=== PATIENT | female | born 1990 | race Caucasian/White ===

== ENCOUNTER 2019-07-31 15:38 | Emergency (ER) | payer OTHER, SELFPAY ==
--- NOTE | ~2019-07-31 | XR_ITS ---
EXAMINATION: XR chest 2V DATE: 07/31/2019 17:20 INDICATION: Syncope. Weakness. TECHNIQUE: Frontal and lateral views of the chest were obtained. COMPARISON: Chest 2 views 01/11/2015 FINDINGS: The chest demonstrates clear lungs without pneumonia, pleural effusion, or pneumothorax. Th e heart size is normal. IMPRESSION: 1. No acute cardiopulmonary disease. Reviewed, dictated and finalized at location A. [employer]
[2019-07-31 16:28] VITALS: BP 114/62; PULSE 65; RESP 16; TEMP 37.2; O2SAT 98
[2019-07-31 16:46] LABS: Basophils Absolute Auto 0.1 K/mm3 (0.0-0.1); Basophils Percent Auto 0.7 % (0.2-1.2); Eosinophils Percent Auto 0.5 % (0-4.4); Hematocrit 42.2 % (37.0-47.0); Hemoglobin 13.4 g/dL (12.0-15.0); Immature Granulocyte Absolute 0.03 K/mm3 (0.00-0.031); Immature Granulocyte Percent A 0.4 % (0-0.5); Lymphocytes Absolute Auto 1.61 K/mm3 (0.9-3.2); Lymphocytes Percent Auto 21.4 % (18.3-44.2); Mean Corpuscular HGB Conc 31.8 g/dl (32-36); Mean Corpuscular Hemoglobin 28.3 pg (26-34); Mean Platelet Volume 10.4 fl (7.4-10.4); Monocytes Absolute Auto 0.6 K/mm3 (0.1-0.6); Monocytes Percent Auto 7.8 % (2.6-8.5); Neutrophils Absolute Auto 5.2 K/mm3 (1.3-6.7); Neutrophils Percent Auto 69.2 % (45.5-73.1); Platelet Count Result 297 k/mm3 (150-375); Red Blood Count 4.74 M/mm3 (4.2-5.4); White Blood Count 7.5 K/mm3 (4.5-10.0)
--- NOTE | 2019-07-31 17:50 | ECG_ITS ---
Measurements Intervals Randall Rate: 69 P: 31 CO: 164 QRS: 25 QRSD: 84 T: 13 QT: 405 QTc: 434 Interpretive Statements SINUS RHYTHM BORDERLINE T WAVE ABNORMALITY- INFERIOR LEADS BASELINE ARTIFACT- I, II, III BORDERLINE ECG Electronically Signed On 08-01-2019 8:14:56 TOUR ESCORT by Shamar Haddad D.O.
--- NOTE | 2019-07-31 17:57 | PC.NURSE ---
PT INFORMED OF NEED FOR URINE SAMPLE, DENIES BEING ABLE TO GO AT THIS TIME.
[2019-07-31 17:58] VITALS: PULSE 69; RESP 16; O2SAT 100
[2019-07-31 18:09] VITALS: BP 105/67; BP 106/84; BP 107/66; PULSE 66; PULSE 79; PULSE 84
[2019-07-31 18:38] LABS: Add Urine Microscopic? YES; Appearance Urine Clear (Clear); Bilirubin Urine Negative (Negative); Color Urine Straw (Yellow); Glucose Urine UA Negative (Negative); Ketones Urine Negative (Negative); Leukocyte Esterase Ur 3+ LEU/UL (Negative); Mucus Urine Rare /lpf; Nitrate Urine Negative (Negative); Protein Urine Negative (Negative); RBC Urine 0-2 /hpf (0-2); Specific Grav Ur 1.014 (1.001-1.035); Squamous Epithelial Cell Urine Occasional /hpf (Few); Urobilinogen Urine Negative mg/dL (<2.0); WBC Urine 16-20 /hpf
[2019-07-31 18:39] LABS: Blood Urine Negative (Negative)
[2019-07-31 18:51] LABS: Amphetamine Screen Urine Negative (Negative); Barbiturate Screen Urine Negative (Negative); Benzodiazepines Screen Urine Negative (Negative); Cannabinoid Screen Urine Negative (Negative); Cocaine Screen Urine Negative (Negative); Methadone Screen Urine Negative (Negative); Opiate Screen Urine Negative (Negative); Phencyclidine Screen Urine Negative (Negative)
--- NOTE | 2019-07-31 18:54 | ED.GENADULT ---
HPI - General Adult General Chief complaint: Dizziness <Kleber Valdes PA-C - Last Filed: 07/31/19 19:56> Stated complaint: dizziness, TAVAREZ <Kleber Valdes PA-C - Last Filed: 07/31/19 19:56> Time Seen by Provider: 07/31/19 17:51 <RADHA Blanc Last Filed: 07/31/19 19:56> Source: patient <Kleber Valdes PA-C - Last Filed: 07/31/19 19:56> Mode of arrival: ambulatory <Kleber Valdes PA-C - Last Filed: 07/31/19 19:56> Limitations: no limitations <Kleber Valdes PA-C - Last Filed: 07/31/19 19:56> History of Present Illness HPI narrative: Patient is a 29-year-old female who presents to emergency department for evaluation of dizziness and syncope that occurred today while sitting at her desk patient began to feel lightheaded and had syncopal episode that was brief patient notes last night she had been up all night with vomiting diarrhea which improved this morning and took some diet medications which she was supposed to take with food but did not take it with food and as a result notes that she believes resulted in her dizziness and syncope. On arrival patient notes mild headache that is frontal in nature notes slight nausea but has no other complaints otherwise and presents with normal gait no distress <Kleber Valdes PA-C - Last Filed: 07/31/19 19:56> Related Data Allergies/adverse reactions: Allergies Allergy/AdvReac Type Severity Reaction Status Date / Time Penicillins Allergy Severe ANAPHYLACTIC Verified 10/03/18 21:27 SHOCK latex Allergy Intermediate Itching,HIV Verified 10/03/18 21:27 ES <Kleber Valdes PA-C - Last Filed: 07/31/19 19:56> Review of Systems Review of Systems: All systems reviewed & are unremarkable except as noted in HPI and below <Kleber Valdes PA-C - Last Filed: 07/31/19 19:56> PMF Surgical History Surgical History: Surgical History H/O section <RADHA Blanc Last Filed: 07/31/19 19:56> Exam Narrative: Exam Narrative: GENERAL: Well-appearing, well-nourished, and in no acute distress. HEAD: Normocephalic, atraumatic. EYES: PERRLA and EOMI. ENT: Nares clear, no rhinorrhea or epistaxis. Mucous membranes moist. Oropharynx without tonsillar hypertrophy exudate or other lesions. NECK: Supple. No adenopathy or masses. CHEST: Clear to auscultation. No respiratory distress. No wheezes rales or rhonchi HEART: Regular rate and rhythm. No murmur heard. Normal peripheral pulses. ABDOMEN: Soft, nontender, nondistended EXTREMITIES: Normal range of motion. No edema. SKIN: Warm, dry, no rash. NEURO: No focal deficits. Alert and oriented x3. Cranial nerves II through XII grossly intact PSYCH: Normal mood and affect. <RADHA Blanc Last Filed: 07/31/19 19:56> Course Course Emergency Course: Patient in the room in no distress aware of case findings treatment plan and diagnosis <RADHA Blanc Last Filed: 07/31/19 19:56> Vital Signs Vital signs: Vital Signs Temperature 98.9 F 07/31/19 16:28 Pulse Rate 65 07/31/19 16:28 Respiratory Rate 16 07/31/19 16:28 Blood Pressure 114/62 07/31/19 16:28 Pulse Oximetry 98 07/31/19 16:28 Temperature 97.3 F L 07/31/19 20:00 Pulse Rate 81 07/31/19 20:00 Respiratory Rate 16 07/31/19 20:00 Blood Pressure 106/75 07/31/19 20:00 Pulse Oximetry 100 07/31/19 20:00 <RADHA Blanc Last Filed: 07/31/19 19:56> Vital Signs Temperature 98.9 F 07/31/19 16:28 Pulse Rate 65 07/31/19 16:28 Respiratory Rate 16 07/31/19 16:28 Blood Pressure 114/62 07/31/19 16:28 Pulse Oximetry 98 07/31/19 16:28 Temperature 97.3 F L 07/31/19 20:00 Pulse Rate 81 07/31/19 20:00 Respiratory Rate 16 07/31/19 20:00 Blood Pressure 106/75 07/31/19 20:00 Pulse Oximetry 100 02/24/20 20:00 <Mandi Del Rio MD -
[2019-07-31] MEDS: ONDANSETRON INJ 4 MG/2 ML VIAL IV PUSH (18:55)
[2019-07-31] MEDS: FAMOTIDINE 20 MG/2 ML VIAL IV PUSH (18:55)
[2019-07-31] MEDS: SODIUM CHLORIDE 0.9% IV 1,000 ML 999 ML IV CONT (18:55)
--- NOTE | 2019-07-31 19:13 | PC.NURSE ---
BEDSIDE REPORT GIVEN TO DAYANNA ROBERTS AT THIS TIME.
[2019-07-31 19:35] VITALS: BP 99/66; PULSE 61; RESP 18; O2SAT 100
[2019-07-31 20:00] VITALS: BP 106/75; PULSE 81; RESP 16; TEMP 36.3; O2SAT 100
[2019-07-31 20:02] LABS: Alanine Aminotransferase 45 U/L (4-35); Albumin Level 4.9 g/dL (3.5-5.1); Alkaline Phosphatase 91 U/L (38-126); Aspartate Amino Transferase 36 U/L (14-36); Bilirubin,Total 0.3 mg/dL (0.2-1.3); Blood Urea Nitrogen 13 mg/dL (7-17); Calcium 9.3 mg/dL (8.4-10.2); Carbon Dioxide 24 mmol/L (22-30); Chloride 101 mmol/L (98-107); Estimated CRCL calculation 85 ml/min; Estimated Glomerular Filt Rate > 60; Glucose 101 mg/dL (65-105); Potassium 4.1 mmol/L (3.4-5.0); Sodium 140 mmol/L (137-145)
--- NOTE | 2019-08-04 11:50 | PC.NURSE ---
LATE ENTRY This note is being entered to document information to the patient's record. The following information was omitted on [07/31/2019], by [LIZZETTE]. NS COMPLETE AT 1955, OFIRMEV COMPLETE AT 1910.
== END 2019-07-31 20:02 | disposition home or self-care (01) ==
PROVIDERS: Emergency Medicine Emergency Medical Services; Emergency Provider General Practice; PCP Internal Medicine
DX: R55 Syncope and collapse (principal); R94.31 Abnormal electrocardiogram [ECG] [EKG]
CPT/HCPCS: 36415; 71046; 80053; 80307; 81001; 81025; 85025; 87077; 87086; 87088; 93005; 96361; 96365; 96375; 99284; J0131; J2405; J7030

== ENCOUNTER 2021-07-08 12:19 | Emergency (ER) | payer OTHER, SELFPAY ==
[2021-07-08 12:39] VITALS: BP 121/62; PULSE 96; RESP 19; TEMP 36.7; O2SAT 96
--- NOTE | 2021-07-08 12:45 | ED.URI ---
HPI - URI/Sore Throat General Chief Complaint: Upper Respiratory Infection Stated Complaint: congestion,headache Time Seen by Provider: 07/08/21 12:47 Source: patient Mode of arrival: ambulatory Limitations: no limitations History of Present Illness HPI Narrative: 31 year old female presents to doctors hospital care with complaints of having COVID 2 weeks ago with continued cough with expectoration of yellowish mucous, sinus drainage with some bleeding noted from nares with blowing nose, right sided headache and right ear pain. Patient states that she had a coughing fit on her way to work today and she was choking which made her chest feel cold and achy, her boss stated she needed to come get checked out. Patient reports that she has been taking Mucinex DM, and Ibuprofen with no resolution of her symptoms. MD elicited complaint: cough, sore throat, rhinorrhea, nasal congestion and other (headache) Related Data Allergies Allergy/AdvReac Type Severity Reaction Status Date / Time Penicillins Allergy Severe ANAPHYLACTIC Verified 07/08/21 12:50 SHOCK latex Allergy Intermediate Itching,HIV Verified 07/08/21 12:50 ES Review of Systems Review of Systems: CONSTITUTIONAL: Denies recent fever, chills, or sweats. EYES: Denies visual changes, redness, or discharge. ENT: Positive for rhinorrhea, congestion, sore throat, right otalgia. CARDIOVASCULAR: Denies chest pain, palpitations, or edema. RESPIRATORY: Positive productive cough denies acute dyspnea or any wheezing. GASTROINTESTINAL: Denies abdominal pain, nausea, vomiting, or diarrhea. GENITOURINARY: Denies dysuria or hematuria. SKIN: Denies rash or itching. MUSCULOSKELETAL: Denies back pain, joint pain, body aches resolved but fatigued NEUROLOGIC: Positive for headache, no numbness, or weakness. PSYCHIATRIC: Positive for history of anxiety or depression. All systems reviewed & are unremarkable except as noted in HPI and below [facility] Past Medical History Medical History (Updated 07/08/21 @ 13:56 by Tegan Lynch NP) Depression Exercise-induced asthma Ovarian cyst Surgical History Surgical History (Updated 07/08/21 @ 13:56 by Tegan Lynch NP) H/O section H/O tubal ligation Hx of tonsillectomy [place] teeth extracted Family History Family History (Updated 07/08/21 @ 13:55 by Tegan Lynch NP) Mother Carcinoma of colon Grandparent Arthritis Social History Social History (Updated 07/08/21 @ 13:35 by Tegan Lynch NP) Smoking status: Never smoker Alcohol intake: current Alcohol use details: social Substance use: never Living arrangements: with family Gender identity (if verbalized by the patient): Female Comments At time of signature, agree with nursing past medical, surgical, social and family history. There is no relevant family history pertinent to the presenting complaint Exam Narrative: GENERAL: Well-appearing, well-nourished, and in no acute distress. HEAD: Normocephalic, atraumatic. EYES: PERRLA and EOMI. ENT: Nares red with clear rhinorrhea some blood from nares when blowing nose. Mucous membranes moist.TM's normal with good light reflex, throat red with no lesions or exudates NECK: Supple. no lymphadenopathy CHEST: Clear to auscultation. No respiratory distress.SAO2 on room air 96%, cough which is productive at times of yellowish mucous no tachypnea noted HEART: Regular rate and rhythm. No murmur heard. Normal peripheral pulses. ABDOMEN: Soft, nontender, nondistended, normal active bowel sounds. EXTREMITIES: Normal range of motion. No edema. SKIN: Warm, dry, no rash. NEURO: No focal deficits. Alert and oriented x3. Course Course Level of Care: Express Care Visit Vital Signs Vital signs: Vital Signs Temperature 36.7 C 07/08/21 12:39 Pulse Rate 96 07/08/21 12:39 Respiratory Rate 19 07/08/21 12:39 Blood Pressure 121/62 07/08/21 12:39 Pulse Oximetry 96 07/08/21 12:39 Temperature 36.7 C 0
== END 2021-07-08 13:11 | disposition home or self-care (01) ==
PROVIDERS: Emergency Provider Registered Nurse
DX: J32.9 Chronic sinusitis, unspecified (principal); R05.9 Cough, unspecified; J45.990 Exercise induced bronchospasm; Z86.16 Personal history of COVID-19
CPT/HCPCS: 99213; G0463

== ENCOUNTER 2021-12-03 12:29 | Emergency (ER) | payer OTHER, SELFPAY ==
[2021-12-03 12:42] VITALS: BP 112/60; PULSE 84; RESP 16; TEMP 36.8; O2SAT 100
--- NOTE | 2021-12-03 12:54 | ED.URI ---
HPI - URI/Sore Throat General Chief Complaint: Upper Respiratory Infection Stated Complaint: sorethroat,headache,nausea Source: patient Mode of arrival: ambulatory Limitations: no limitations History of Present Illness HPI Narrative: Ms. Ch is a 31-year-old female patient presenting to the clinic today with complaints of sore throat, headache, nausea x3 days. She reports she took a COVID test at work yesterday and was negative. States that she had a lot of phlegm in her throat and ended up vomiting at work yesterday so she was sent home. States she slept all day yesterday after being sent home. She feels as though she has strep throat. She denies any known exposure to any COVID or influenza but/strep throat is running rapid through her workplace. MD elicited complaint: sore throat and nasal congestion Related Data Home Medications Medication Instructions Recorded Confirmed [id number]-qzvc-minerals 27 1 tablet PO DAILY 12/03/21 12/03/21 mg-0.4 mg tablet Allergies Allergy/AdvReac Type Severity Reaction Status Date / Time Penicillins Allergy Severe ANAPHYLACTIC Verified 12/03/21 12:55 SHOCK latex Allergy Intermediate Itching,HIV Verified 12/03/21 12:55 ES Review of Systems Review of Systems: Pertinent positives per HPI. Patient denies any fever, chills, rash, visual changes, dizziness, shortness of breath, chest pain, palpitations, diarrhea, constipation, abdominal pain, or any urinary issues. [facility] Past Medical History Medical History (Updated 12/03/21 @ 13:27 by Vasquez Alamo APRN) Depression Exercise-induced asthma Ovarian cyst Surgical History Surgical History (Updated 07/08/21 @ 13:56 by Tegan Lynch NP) H/O section H/O tubal ligation Hx of tonsillectomy [place] teeth extracted Family History Family History (Updated 07/08/21 @ 13:56 by Tegan Lynch NP) Mother Carcinoma of colon Grandparent Arthritis Social History Social History (Updated 07/08/21 @ 13:35 by Tegan Lynch NP) Smoking status: Never smoker Alcohol intake: current Alcohol use details: social Substance use: never Gender identity (if verbalized by the patient): Female Comments At the time of my signature, I reviewed and agree with the nursing past medical, surgical, social, and family history. There is no relevant family history pertinent to the patient complaint. Exam Narrative: General: Well-developed, well nourished, in no apparent distress Head: Normocephalic, atraumatic Eyes: Pupils equally round and reactive to light bilaterally, EOM intact, sclera and conjunctive clear, no discharge, lids normal Ears: TMs intact and clear, ear canals clear, no drainage, grossly hearing normal. Nose: Nares patent, clear nasal discharge, no inflammation, no sinus tenderness. Mouth: Oral pharynx without lesions or masses, good dentition, MMM. Oropharynx red, postnasal drip Neck: Supple, trachea midline, no enlargement of anterior or posterior cervical nodes, no thyroid masses or goiter palpable. Cardio: Regular rate and rhythm, s1 and s2 normal, no murmur appreciated. Resp: Clear to auscultation bilaterally, no rhonchi, rales, wheezing or rubs Course Course Emergency Course: Portions of this record may have been created with voice recognition software. Level of Care: Express Care Visit Vital Signs Vital signs: Vital Signs Temperature 36.8 C 12/03/21 12:42 Pulse Rate 84 12/03/21 12:42 Respiratory Rate 16 12/03/21 12:42 Blood Pressure 112/60 12/03/21 12:42 Pulse Oximetry 100 12/03/21 12:42 Oxygen Delivery Room Air 12/03/21 12:42 Temperature 36.8 C 12/03/21 12:42 Pulse Rate 84 12/03/21 12:42 Respiratory Rate 16 12/03/21 12:42 Blood Pressure 112/60 12/03/21 12:42 Pulse Oximetry 100 12/03/21 12:42 Oxygen Delivery Room Air 12/03/21 12:42 Vital signs reviewed MDM - URI/Sore Throat MDM Narrative Medical
== END 2021-12-03 13:32 | disposition home or self-care (01) ==
PROVIDERS: Emergency Provider Nurse Practitioner Family; PCP Hospitalist
DX: R09.82 Postnasal drip (principal); J06.9 Acute upper respiratory infection, unspecified; J02.9 Acute pharyngitis, unspecified; Z20.822 Contact with and (suspected) exposure to COVID-19; J45.990 Exercise induced bronchospasm
CPT/HCPCS: 87081; 87426; 87880; 99213; C9803; G0463

== ENCOUNTER 2021-12-05 11:20 | Emergency (ER) | payer OTHER, SELFPAY ==
--- NOTE | 2021-12-05 11:34 | ED.URI ---
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 2 days ago she stated strep is running like wildfire through her office and she came in but the sore throat she is just having symptoms for about 24 hours and she tested negative for COVID and negative for rapid strep however her culture also came back negative. She is demanding an antibiotic she states that she has a ball of blood and exudate on her left tonsil partially down her pharynx-she states she has 102.8 fever this morning, is afebrile here Plan is to do another rapid strep She is not drooling, she is afebrile, she has no muffling of her voice, and she is angry Related Data Home Medications Medication Instructions Recorded Confirmed hxnlqmpzfoip-Nz-bqfz-minerals 27 1 tablet PO DAILY 12/03/21 12/05/21 mg-0.4 mg tablet prednisone 20 mg tablet 2 tablet PO DAILY 12/05/21 12/05/21 Allergies Allergy/AdvReac Type Severity Reaction Status Date / Time Penicillins Allergy Severe ANAPHYLACTIC Verified 12/05/21 11:28 SHOCK latex Allergy Intermediate Itching,HIV Verified 12/05/21 11:28 ES Review of Systems Review of Systems: CONSTITUTIONAL: No chills, sweats. States had a fever 102.8 this morning; EYES: Denies visual changes, redness, discharge. ENT: Denies rhinorrhea, congestion, has sore throat, otalgia. CARDIOVASCULAR: Denies chest pain, palpitations, edema. RESPIRATORY: Denies dyspnea, wheezing, cough GASTROINTESTINAL: Denies abdominal pain, nausea, vomiting, diarrhea. GENITOURINARY: Denies dysuria, hematuria, abnormal discharge SKIN: Denies rash or itching. NEUROLOGIC: Denies numbness, or focal weakness. PSYCHIATRIC: Denies anxiety or depression. [facility] Past Medical History Medical History Depression Exercise-induced asthma Ovarian cyst Surgical History Surgical History H/O section H/O tubal ligation Hx of tonsillectomy [place] teeth extracted Family History Family History Mother Carcinoma of colon Grandparent Arthritis Social History Social History Smoking status: Never smoker Alcohol intake: current Alcohol use details: social Substance use: never Gender identity (if verbalized by the patient): Female Comments At time of signature, I agree with nursing past medical, surgical, social and family history. There is no relevant family history pertinent to the presenting complaint. Exam Narrative: GENERAL: This is a well-nourished, well-developed patient, in mild distress. HEAD: normocephalic, atraumatic. EYES: Sclera clear/white. Vision is grossly intact. EARS: External ears normal, auditory canals erythema and without drainage, TMs normal without perforation. Hearing grossly intact. NOSE: External nose normal without nasal discharge, nares without redness, no rhinorrhea. THROAT: Mucous membranes moist, posterior pharynx NECK: Neck supple, non-tender CARDIOVASCULAR: Regular rate and rhythm without murmurs, gallops, or rubs. RESPIRATORY: Clear to auscultation. Breath sounds equal bilaterally. No wheezes, rales, or rhonchi. GASTROINTESTINAL: Not done SKIN: warm, intact with no suspicious lesions or rash, good texture and turgor. NEURO: awake, alert, and oriented to person, place and time. There were no obvious focal neurologic abnormalities. Steady gait EXTREMITIES: Normal range of motion. BACK: Nontender without deformity Course Course Emergency Course: Patient retested for both strep and this time COVID Strep test is negative but COV
[2021-12-05 11:35] VITALS: BP 121/75; PULSE 76; RESP 18; TEMP 36.4; O2SAT 100
== END 2021-12-05 12:25 | disposition home or self-care (01) ==
PROVIDERS: Emergency Provider Nurse Practitioner; PCP Hospitalist
DX: U07.1 COVID-19 (principal); J45.990 Exercise induced bronchospasm
CPT/HCPCS: 87426; 87880; 99213; C9803; G0463

== ENCOUNTER 2022-03-31 19:11 | Emergency (ER) | payer OTHER, SELFPAY ==
[2022-03-31 19:20] VITALS: BP 110/64; PULSE 73; RESP 16; TEMP 36.2; O2SAT 100
--- NOTE | 2022-03-31 19:38 | ED.URI ---
HPI - URI/Sore Throat General Chief Complaint: Nausea/Vomiting/Diarrhea Stated Complaint: nausea,diarrhea Time Seen by Provider: 03/31/22 19:30 Source: patient Mode of arrival: ambulatory Limitations: no limitations History of Present Illness HPI Narrative: Patient presents today with a 2 day history of headache, left ear pain, body aches and chills, nausea, vomiting, diarrhea. States her children were sick with the, ?stomach flu? last weekend, but their symptoms have since resolved. She has taken some [id number] medications without much relief. States she is unable to keep down much water, but is urinating. Related Data Allergies Allergy/AdvReac Type Severity Reaction Status Date / Time Penicillins Allergy Severe ANAPHYLACTIC Verified 03/31/22 19:31 SHOCK latex Allergy Intermediate Itching,HIV Verified 03/31/22 19:31 ES Review of Systems Review of Systems: CONSTITUTIONAL: Denies chills, or sweats.+ body aches, chills, fever EYES: Denies visual changes, redness, or discharge. ENT: Denies rhinorrhea, congestion, sore throat. + left ear pain CARDIOVASCULAR: Denies chest pain, palpitations, or edema. RESPIRATORY: Denies cough or dyspnea. GASTROINTESTINAL: Denies abdominal pain. + nausea, vomiting, diarrhea GENITOURINARY: Denies dysuria or hematuria. SKIN: Denies rash, itching, or wounds. MUSCULOSKELETAL: Denies back pain, joint pain, or myalgia. NEUROLOGIC: Denies headache, numbness, tingling, or weakness. PSYCH: Denies depression or anxiety. [facility] Past Medical History Medical History Depression Exercise-induced asthma Ovarian cyst Surgical History Surgical History H/O section H/O tubal ligation Hx of tonsillectomy [place] teeth extracted Family History Family History Mother Carcinoma of colon Grandparent Arthritis Social History Social History Smoking status: Never smoker Alcohol intake: current Alcohol use details: social Substance use: never Gender identity (if verbalized by the patient): Female Comments At time of signature, I have reviewed and agree with nursing past medical, surgical, social and family history unless otherwise noted. Please see nursing chart for further information. There is no relevant family history pertinent to the presenting complaint Exam Narrative: GENERAL: Well-appearing, well-nourished, and in no acute distress. HEAD: Normocephalic, atraumatic. EYES: EOMI. No redness or drainage. Conjunctivae normal. ENT: Mucous membranes pink and moist. Nares clear. No rhinorrhea. TMs normal bilaterally. Throat normal. Uvula midline. NECK: Normal AROM. Supple. No lymphadenopathy. CHEST: No respiratory distress. Clear to auscultation. HEART: Regular rate and rhythm. No murmur appreciated. Normal peripheral pulses. ABDOMEN: Soft, nontender, nondistended, normal active bowel sounds. MUSCULOSKELETAL: No bony tenderness. EXTREMITIES: Normal range of motion. No edema. SKIN: Warm, dry, no rash. Capillary refill normal. Normal skin turgor. NEURO: No focal deficits. Alert and oriented x3. Gait steady. PSYCH: Normal affect. No signs of depression or anxiety. Course Course Emergency Course: 2001- Patient not feeling better after Zofran. Discussed other options, also not taking motrin on empty stomach, adding pepcid, when to go to the ER. Level of Care: Express Care Visit Vital Signs Vital signs: Vital Signs Temperature 97.1 F L 03/31/22 19:20 Pulse Rate 73 03/31/22 19:20 Respiratory Rate 16 03/31/22 19:20 Blood Pressure 110/64 03/31/22 19:20 Pulse Oximetry 100 03/31/22 19:20 Oxygen Delivery Room Air 03/31/22 19:20 Temperature 97.1 F L 03/31/22 19:20 Pulse Rate 73 03/31/22 19:20
[2022-03-31] MEDS: ONDANSETRON HCL ODT 4 MG TABLET 8 MG SUBLINGUAL (19:42)
== END 2022-03-31 20:18 | disposition home or self-care (01) ==
PROVIDERS: Emergency Provider Nurse Practitioner
DX: B34.9 Viral infection, unspecified (principal); Z20.822 Contact with and (suspected) exposure to COVID-19; J45.990 Exercise induced bronchospasm
CPT/HCPCS: 87426; 87804; 99213; A9270; C9803; G0463

== ENCOUNTER 2022-06-01 13:07 | Emergency (ER) | payer OTHER, SELFPAY ==
[2022-06-01 13:23] VITALS: BP 111/68; PULSE 66; RESP 18; TEMP 36.3; O2SAT 100
--- NOTE | 2022-06-01 14:48 | ED.URI ---
HPI - URI/Sore Throat General Chief Complaint: Upper Respiratory Infection Stated Complaint: sorethroat,headache Time Seen by Provider: 06/01/22 14:48 Source: patient Mode of arrival: ambulatory Limitations: no limitations History of Present Illness HPI Narrative: 32-year-old female presents with complaint of sore throat, headache, fatigue, fever starting yesterday. States that her temp was 104? F this morning. Took Tylenol prior to arrival. States that she had exposure to strep from both her children. Denies nausea vomiting diarrhea. All systems reviewed and negative except as noted above. Related Data Allergies Allergy/AdvReac Type Severity Reaction Status Date / Time Penicillins Allergy Severe ANAPHYLACTIC Verified 06/01/22 14:32 SHOCK latex AdvReac Intermediate Itching,HIV Verified 06/01/22 14:32 ES Review of Systems Review of Systems: CONSTITUTIONAL: reports fever, chills, or sweats. EYES: Denies visual changes, redness, or discharge. ENT: Denies rhinorrhea, congestion . Reports sore throat CARDIOVASCULAR: Denies chest pain, palpitations, or edema. RESPIRATORY: Denies cough or dyspnea. GASTROINTESTINAL: Denies abdominal pain, nausea, vomiting, or diarrhea. GENITOURINARY: Denies dysuria or hematuria. SKIN: Denies rash or itching. MUSCULOSKELETAL: Denies back pain, joint pain, or myalgia. NEUROLOGIC: reports headache. Denies numbness, or weakness. PSYCHIATRIC: Denies anxiety or depression. All other systems reviewed are negative, except as documented in HPI. [facility] Past Medical History Medical History Depression Exercise-induced asthma Ovarian cyst Surgical History Surgical History H/O section H/O tubal ligation Hx of tonsillectomy [place] teeth extracted Family History Family History Mother Carcinoma of colon Grandparent Arthritis Social History Social History Smoking status: Never smoker Alcohol intake: current Alcohol use details: social Substance use: never Gender identity (if verbalized by the patient): Female Comments At time of signature, agree with nursing past medical, surgical, social and family history. There is no relevant family history pertinent to the presenting complaint. Exam Narrative: GENERAL: This is a well-nourished, well-developed patient, in no apparent distress. HEAD: normocephalic, atraumatic. EYES: PERRL. Sclera clear/white. Vision is grossly intact. EARS: External ears normal, auditory canals clear and without drainage, TMs normal without perforation. Hearing grossly intact. NOSE: External nose normal with no obvious nasal discharge, nares without redness, no rhinorrhea. THROAT: Mucous membranes moist, swelling and erythema to the pharynx. No exudates. NECK: Neck supple, non-tender without lymphadenopathy, masses or thyromegaly. CARDIOVASCULAR: Regular rate and rhythm without murmurs, gallops, or rubs. RESPIRATORY: Clear to auscultation. Breath sounds equal bilaterally. No wheezes, rales, or rhonchi. SKIN: warm, Dry, intact with no suspicious lesions or rash, good texture and turgor. NEURO: awake, alert, and oriented to person, place and time. There were no obvious focal neurologic abnormalities. EXTREMITIES: No joint tenderness, effusion, or edema noted. Course Course Level of Care: Express Care Visit Vital Signs Vital signs: Vital Signs Temperature 36.3 C L 06/01/22 13:23 Pulse Rate 66 06/01/22 13:23 Respiratory Rate 18 06/01/22 13:23 Blood Pressure 111/68 06/01/22 13:23 Pulse Oximetry 100 06/01/22 13:23 Oxygen Delivery Room Air 06/01/22 13:23 Temperature 36.3 C L 06/01/22 13:23 Pulse Rate 66 06/01/22 13:23 Respiratory Rate 18 06/01/22 13:23 Blood P
== END 2022-06-01 15:00 | disposition home or self-care (01) ==
PROVIDERS: Emergency Provider Nurse Practitioner Family; PCP Hospitalist
DX: J02.9 Acute pharyngitis, unspecified (principal); J45.990 Exercise induced bronchospasm
CPT/HCPCS: 99213; G0463

== ENCOUNTER 2022-07-20 08:05 | Emergency (ER) | payer OTHER, SELFPAY ==
[2022-07-20 08:15] VITALS: BP 105/68; PULSE 64; RESP 18; TEMP 36.7; O2SAT 100
[2022-07-20 08:16] VITALS: BP 105/68; PULSE 64; RESP 18; TEMP 36.7; O2SAT 100
--- NOTE | 2022-07-20 08:30 | ED.URI ---
HPI - URI/Sore Throat General Chief Complaint: Upper Respiratory Infection Stated Complaint: sorethroat,lt earache Source: patient Mode of arrival: ambulatory Limitations: no limitations History of Present Illness HPI Narrative: 32-year-old female presents to [facility] with complaints of sore throat, headache and left ear pain for the past 2 days. Patient has been taking [id number] ibuprofen with minimal relief. Patient reports that her 2 children were diagnosed with strep throat 3 days ago. Patient denies cough, congestion, runny nose, shortness of breath, wheezing, nausea, vomiting or diarrhea. Patient reports that she did have a tonsillectomy at age 11. MD elicited complaint: sore throat Onset (ago): day(s) (2) Exacerbating factors: swallowing Context: sick contacts Treatments prior to arrival: ibuprofen Related Data Allergies Allergy/AdvReac Type Severity Reaction Status Date / Time Penicillins Allergy Severe ANAPHYLACTIC Verified 06/01/22 14:32 SHOCK latex AdvReac Intermediate Itching,HIV Verified 06/01/22 14:32 ES Review of Systems Constitutional: Constitutional: Denies chills, Denies fatigue, Denies fever(s) and Denies weakness ENT: Denies vertigo, Denies dizziness, Denies epistaxis, Denies nasal congestion and Reports sore throat Comments: Left ear pain Cardiovascular: Cardiovascular: Denies chest pain Respiratory: Respiratory: Denies cough, Denies dyspnea and Denies wheezing Gastrointestinal: Gastrointestinal: Denies diarrhea, Denies nausea and Denies vomiting Integumentary/Breasts: Skin/Breast: Denies rash PMFSH Past Medical History Medical History Depression Exercise-induced asthma Ovarian cyst Surgical History Surgical History H/O section H/O tubal ligation Hx of tonsillectomy [place] teeth extracted Family History Family History Mother Carcinoma of colon Grandparent Arthritis Social History Social History Smoking status: Never smoker Alcohol intake: current Alcohol use details: social Substance use: never Living arrangements: with family Gender identity (if verbalized by the patient): Female Comments At time of signature, I agree with nursing past medical, surgical, social and family history. There is no relevant family history pertinent to the presenting complaint. Exam Const: General: healthy appearing and no acute distress Nutritional Appearance: well nourished Orientation/consciousness: patient oriented x3 Limitations: no limitations HENMT: Head: normal to inspection Ears: external ears normal, TM's normal bilaterally and EAC's normal Face/Nose/Sinus: Normal external nose present Face and sinus: normal facial exam and sinuses nontender Mouth: Yes Normal oral and palatal mucosa present and Yes lip normal Throat: uvula midline Other: Mild erythema noted to posterior pharynx. Tonsils are absent Eyes: Conjunctivae: conjunctivae normal Neck: Neck: normal visual inspection Resp: Effort & Inspection: normal respiratory effort and not labored Auscultation: clear to auscultation bilaterally, no crackles, no rales, no rhonchi and no wheezes Cardio: Rate: regular rate Rhythm: regular rhythm Heart sounds: no murmurs Skin: General skin exam: normal color Rashes: no rashes Neuro: General: patient oriented x3 Speech: normal speech Psych: Affect: normal affect Attitude: cooperative Course Course Level of Care: Express Care Visit Vital Signs Vital signs: Vital Signs Temperature 36.7 C 07/20/22 08:15 Pulse Rate 64 07/20/22 08:15 Respiratory Rate 18 07/20/22 08:15 Blood Pressure 105/68 07/20/22 08:15 Pulse Oximetry 100 07/20/22 08:15 Oxygen Delivery Room Air 07/20/22 08:15 Temperature
== END 2022-07-20 08:45 | disposition home or self-care (01) ==
PROVIDERS: Emergency Provider Nurse Practitioner Family; PCP Hospitalist
DX: J02.9 Acute pharyngitis, unspecified (principal); J45.990 Exercise induced bronchospasm
CPT/HCPCS: 87081; 87880; 99213; G0463

== ENCOUNTER 2022-09-19 10:48 | Emergency (ER) | payer OTHER, SELFPAY ==
[2022-09-19 11:12] VITALS: BP 107/71; PULSE 82; RESP 16; TEMP 36.7; O2SAT 99
--- NOTE | 2022-09-19 11:30 | ED.URI ---
HPI - URI/Sore Throat General Chief Complaint: Upper Respiratory Infection Stated Complaint: sorethroat,cough Time Seen by Provider: 09/19/22 11:15 Source: patient Mode of arrival: ambulatory Limitations: no limitations History of Present Illness HPI Narrative: Brenda is a 32-year-old female patient presenting to the clinic today with complaints of sore throat, cough, congestion, and bilateral ear pain x2 days. She denies any fever or chills. She denies any known exposure to anybody with COVID, flu, or strep. Her son has similar symptoms and is being seen in the clinic today. MD elicited complaint: cough, sore throat, nasal congestion and other (Bilateral ear pain) Related Data Home Medications Medication Instructions Recorded Confirmed No Home Medications 09/19/22 09/19/22 Allergies Allergy/AdvReac Type Severity Reaction Status Date / Time Penicillins Allergy Severe ANAPHYLACTIC Verified 09/19/22 11:15 SHOCK latex AdvReac Intermediate Itching,HIV Verified 09/19/22 11:15 ES Review of Systems Review of Systems: Pertinent positives per HPI. Patient denies any fever, chills, rash, headache, visual changes, dizziness, cough, shortness of breath, chest pain, palpitations, nausea, vomiting, diarrhea, constipation, abdominal pain, or any urinary issues. [facility] Past Medical History Medical History Depression Exercise-induced asthma Ovarian cyst Surgical History Surgical History H/O section H/O tubal ligation Hx of tonsillectomy [place] teeth extracted Family History Family History Mother Carcinoma of colon Grandparent Arthritis Social History Social History Smoking status: Never smoker Alcohol intake: current Alcohol use details: social Substance use: never Living arrangements: with family Gender identity (if verbalized by the patient): Female Comments At the time of my signature, I reviewed and agree with the nursing past medical, surgical, social, and family history. There is no relevant family history pertinent to the patient complaint. Exam Narrative: General: Well-developed, well nourished, in no apparent distress Head: Normocephalic, atraumatic Eyes: Pupils equally round and reactive to light bilaterally, EOM intact, sclera and conjunctive clear, no discharge, lids normal Ears: TMs intact and congested, ear canals clear, no drainage, grossly hearing normal. Nose: Nares patent, clear discharge, mild inflammation, no sinus tenderness. Mouth: Oral pharynx mildly red without lesions or masses, good dentition, MMM. Neck: Supple, trachea midline, no enlargement of anterior or posterior cervical nodes, no thyroid masses or goiter palpable. Cardio: Regular rate and rhythm, s1 and s2 normal, no murmur appreciated. Resp: Clear to auscultation bilaterally, no rhonchi, rales, wheezing or rubs Course Course Emergency Course: Portions of this record may have been created with voice recognition software. Level of Care: Express Care Visit Vital Signs Vital signs: Vital Signs Temperature 36.7 C 09/19/22 11:12 Pulse Rate 82 09/19/22 11:12 Respiratory Rate 16 09/19/22 11:12 Blood Pressure 107/71 09/19/22 11:12 Pulse Oximetry 99 09/19/22 11:12 Oxygen Delivery Room Air 09/19/22 11:12 Temperature 36.7 C 09/19/22 11:12 Pulse Rate 82 09/19/22 11:12 Respiratory Rate 16 09/19/22 11:12 Blood Pressure 107/71 09/19/22 11:12 Pulse Oximetry 99 09/19/22 11:12 Oxygen Delivery Room Air 09/19/22 11:12 Vital signs reviewed MDM - URI/Sore Throat MDM Narrative Medical decision making narrative: At the time of visit patient is resting comfortably on the exam table. I suspect patient has URI/pharyngitis/
== END 2022-09-19 11:31 | disposition home or self-care (01) ==
PROVIDERS: Emergency Provider Nurse Practitioner Family; PCP Hospitalist
DX: J06.9 Acute upper respiratory infection, unspecified (principal); J02.9 Acute pharyngitis, unspecified; B34.9 Viral infection, unspecified; J45.990 Exercise induced bronchospasm
CPT/HCPCS: 87081; 87880; 99213; G0463

== ENCOUNTER 2022-09-21 08:52 | Emergency (ER) | payer OTHER, SELFPAY ==
--- NOTE | ~2022-09-21 | XR_ITS ---
Clinical Indication: Cough PA and lateral views of the chest: Comparison: 07/31/2019 Findings: The lungs are clear, without evidence of focal consolidation or pleural effusion. Cardiome diastinal silhouette is within normal limits. Bones and soft tissues are unremarkable. Impression: Normal chest. Reviewed, dictated and finalized at [facility]. Impression: Normal chest.
[2022-09-21 08:59] VITALS: BP 102/60; PULSE 66; RESP 16; TEMP 36.6; O2SAT 100
--- NOTE | 2022-09-21 09:17 | ED.URI ---
HPI - URI/Sore Throat General Chief Complaint: Upper Respiratory Infection Stated Complaint: sorethroat,cough Time Seen by Provider: 09/21/22 08:55 Source: patient Mode of arrival: ambulatory Limitations: no limitations History of Present Illness HPI Narrative: [age] year female presents to [facility] with complaints of sore throat, nonproductive cough, chest congestion, upper chest pains with coughing for the past 3-4 days. Patient was evaluated here 2 days ago, diagnosed with pharyngitis and was prescribed prednisone at that time. Patient reports that she took a COVID test at her employer today which was positive. Patient is nonsmoker. Patient reports that she has a history of bronchitis and pneumonia. Patient has been taking prescribed prednisone, [id number] Motrin, Tylenol, NyQuil and DayQuil with minimal relief. Patient reports that she has a history of chronic shortness of breath and is scheduled to see her primary care provider this week to discuss MD elicited complaint: cough and sore throat Pertinent past history: pneumonia and other (bronchitis) Onset (ago): day(s) (3) Able to tolerate fluids by mouth: Yes Context: sick contacts Treatments prior to arrival: acetaminophen, ibuprofen and cold medicine Related Data Allergies Allergy/AdvReac Type Severity Reaction Status Date / Time Penicillins Allergy Severe ANAPHYLACTIC Verified 09/19/22 11:15 SHOCK latex AdvReac Intermediate Itching,HIV Verified 09/19/22 11:15 ES Review of Systems Constitutional: Constitutional: Denies chills, Reports fatigue, Denies fever(s) and Denies weakness ENT: Denies dizziness, Denies epistaxis, Reports nasal congestion and Reports sore throat Cardiovascular: Cardiovascular: Reports chest pain, Denies rapid heart rate, Denies radiating jaw, neck or arm pain and Denies slow heart rate Respiratory: Respiratory: Reports chest congestion, Reports cough, Reports dyspnea and Denies wheezing Gastrointestinal: Gastrointestinal: Denies abdominal pain, Denies diarrhea, Denies nausea and Denies vomiting Integumentary/Breasts: Skin/Breast: Denies rash Neurologic: Denies dizziness, Denies syncope and Denies headache(s) [facility] Past Medical History Medical History Depression Exercise-induced asthma Ovarian cyst Surgical History Surgical History H/O section H/O tubal ligation Hx of tonsillectomy [place] teeth extracted Family History Family History Mother Carcinoma of colon Grandparent Arthritis Social History Social History Smoking status: Never smoker Alcohol intake: current Alcohol use details: social Substance use: never Living arrangements: with family Gender identity (if verbalized by the patient): Female Comments At time of signature, I agree with nursing past medical, surgical, social and family history. There is no relevant family history pertinent to the presenting complaint. Exam Const: General: healthy appearing and no acute distress Nutritional Appearance: well nourished Orientation/consciousness: patient oriented x3 Limitations: no limitations HENMT: Head: normal to inspection Ears: external ears normal, TM's normal bilaterally and EAC's normal Face/Nose/Sinus: Normal external nose present and Normal nares present Face and sinus: normal facial exam Mouth: Yes Normal oral and palatal mucosa present Teeth and gingiva: dentition normal Throat: posterior oropharynx normal and uvula midline Eyes: Conjunctivae: conjunctivae normal Neck: Neck: normal visual inspection Resp: Effort & Inspection: normal respiratory effort Auscultation: no crackles, no rales, no rhonchi, no wheezes and breath sounds present Other: Frequent harsh nonproductive cough noted; mild dimin
== END 2022-09-21 09:41 | disposition home or self-care (01) ==
PROVIDERS: Emergency Provider Nurse Practitioner Family; PCP Hospitalist
DX: U07.1 COVID-19 (principal)
CPT/HCPCS: 71046; 99213; G0463

== ENCOUNTER 2022-09-30 09:44 | Emergency (ER) | payer OTHER, SELFPAY ==
--- NOTE | 2022-09-30 09:45 | ED.URI ---
HPI - URI/Sore Throat General Chief Complaint: Upper Respiratory Infection Stated Complaint: Lt Ear Irritation,Headache,Lt Facial Swelling Time Seen by Provider: 09/30/22 09:45 Source: patient Mode of arrival: ambulatory Limitations: no limitations History of Present Illness HPI Narrative: Is a 32-year-old female who presents with left ear pain, left-sided throat pain and headache. Patient was seen here 09-19 and 09-21 for similar symptoms. Patient diagnosed with COVID. Patient reports son does positive for strep a few days after being diagnosed with COVID. 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 States her throat feels like she is swallowing glass. Denies any discharge from left ear or hearing loss. Denies any congestion at this time, reports fever of 100.3 this morning. Has been using Tylenol and ibuprofen for pain with no relief. Denies any nausea, vomiting, diarrhea. MD elicited complaint: sore throat Related Data Allergies Allergy/AdvReac Type Severity Reaction Status Date / Time Penicillins Allergy Severe ANAPHYLACTIC Verified 09/30/22 09:46 SHOCK latex AdvReac Intermediate Itching,HIV Verified 09/30/22 09:46 ES Review of Systems Review of Systems: All systems reviewed & are unremarkable except as noted in HPI and below Constitutional: Constitutional: Denies body ache(s), Denies chills, Denies fatigue, Reports fever(s), Reports headache(s), Denies malaise and Denies weakness Eyes: Eyes: Denies blurry vision, Denies itchy eyes and Denies loss of vision ENT: Reports otalgia, Reports headache(s), Denies nasal congestion, Denies sinus pain and Reports sore throat Cardiovascular: Cardiovascular: Denies chest pain, Denies irregular heart rhythm and Denies dyspnea Respiratory: Respiratory: Reports cough and Denies dyspnea Gastrointestinal: Gastrointestinal: Denies abdominal pain, Denies diarrhea, Denies nausea and Denies vomiting Musculoskeletal: Musculoskeletal: Denies back pain, Denies myalgias and Denies arthralgias Integumentary/Breasts: Skin/Breast: Denies pruritus and Denies rash Neurologic: Denies headache(s), Denies loss of vision and Denies weakness Psychiatric: Psychiatric: Reports no additional psychiatric complaints Endocrine: Endocrine: Denies fatigue Allergic/Immunologic: Allergic/Immunologic: Denies itchy eyes PMFSH Past Medical History Medical History Depression Exercise-induced asthma Ovarian cyst Surgical History Surgical History H/O section H/O tubal ligation Hx of tonsillectomy [place] teeth extracted Family History Family History Mother Carcinoma of colon Grandparent Arthritis Social History Social History Smoking status: Never smoker Alcohol intake: current Alcohol use details: social Substance use: never Living arrangements: with family Gender identity (if verbalized by the patient): Female Comments At time of signature, agree with nursing past medical, surgical, social and family history. There is no relevant family history pertinent to the presenting complaint. Exam Const: General: cooperative, healthy appearing, comfortable, no acute distress and well nourished Nutritional Appearance: well nourished Orientation/consciousness: patient oriented x3 Limitations: no limitations HENMT: Head: normal to inspection, normocephalic and atraumatic Ears: hearing grossly normal bilaterally, external ears normal, TM's normal bilaterally, EAC's normal and no periauricular adenopathy Face/Nose/Sinus: Normal external nose present, Normal nasal mucous membranes and turbinates present, normal facial exam, sinuses nontender and face symmetric Face and sinus: normal fac
[2022-09-30 09:52] VITALS: BP 112/73; PULSE 72; RESP 18; TEMP 36.7; O2SAT 99
== END 2022-09-30 10:26 | disposition home or self-care (01) ==
PROVIDERS: Emergency Provider Nurse Practitioner Family; PCP Hospitalist
DX: H92.02 Otalgia, left ear (principal); J02.9 Acute pharyngitis, unspecified; J45.990 Exercise induced bronchospasm; Z86.16 Personal history of COVID-19
CPT/HCPCS: 87081; 87880; 99213; G0463

== ENCOUNTER 2023-04-08 11:14 | Emergency (ER) | payer OTHER, SELFPAY ==
[2023-04-08 11:24] VITALS: BP 107/65; PULSE 70; RESP 18; TEMP 36.4; O2SAT 100
--- NOTE | 2023-04-08 11:29 | ED.URI ---
HPI - URI/Sore Throat General Chief Complaint: Upper Respiratory Infection Stated Complaint: sorethroat Time Seen by Provider: 04/08/23 11:31 Source: patient, RN notes reviewed and old records reviewed Mode of arrival: ambulatory Limitations: no limitations History of Present Illness HPI Narrative: 32 year old female who presents to [facility] care with complaints of congestion, headache, body aches and some left ear ache with throat feeling like knives in it when she swallows. Patient reports sick contact from co-worker. Patient reports that she had fevre this morning of 1017F and she took DayQuil around 0930. Patient reports that she has had her tonsils out and she has had strep throat even after having them removed. MD elicited complaint: sore throat, nasal congestion and other (headache) Pertinent past history: other (tonsillectomy) Onset (ago): day(s) (since yesterday) Pain scale (0-10): 4 Able to tolerate fluids by mouth: Yes Exacerbating factors: swallowing Treatments prior to arrival: other (DayQuil) Related Data Home Medications Medication Instructions Recorded Confirmed No Home Medications 04/08/23 04/08/23 Allergies Allergy/AdvReac Type Severity Reaction Status Date / Time Penicillins Allergy Severe ANAPHYLACTIC Verified 04/08/23 11:29 SHOCK latex AdvReac Intermediate Itching,HIV Verified 04/08/23 11:29 ES Review of Systems Review of Systems: CONSTITUTIONAL: Reports malaise, chills, sweats, and fever today 101.7F EYES: Denies visual changes, redness, or discharge. ENT: Reports rhinorrhea, congestion,no sinus pain, left otalgia and positive sore throat. CARDIOVASCULAR: Denies chest pain, palpitations, or edema. RESPIRATORY: Reports no acute cough.? Denies dyspnea. GASTROINTESTINAL: Denies abdominal pain, nausea, vomiting, diarrhea SKIN: Denies rash or itching. MUSCULOSKELETAL: Positive for myalgia. NEUROLOGIC: Positive for headache. All systems reviewed & are unremarkable except as noted in HPI and below PMFSH Past Medical History Medical History Depression Exercise-induced asthma Ovarian cyst Surgical History Surgical History H/O section H/O tubal ligation Hx of tonsillectomy [place] teeth extracted Family History Family History Mother Carcinoma of colon Grandparent Arthritis Social History Social History Smoking status: Never smoker Alcohol intake: current Alcohol use details: social Substance use: never Living arrangements: with family Gender identity (if verbalized by the patient): Female Comments At time of signature, agree with nursing past medical, surgical, social and family history. There is no relevant family history pertinent to the presenting complaint Exam Narrative: GENERAL: Well-appearing, well-nourished, and in no acute distress. HEAD: Normocephalic EYES: PERRLA, conjunctivae clear ENT: Nares clear, turbinates edematous and erythematous, clear discharge. Mucous membranes moist. TM pearly clay with dull light reflex bilaterally; no tragal tenderness. Oropharynx erythematous without lesions. Tonsils not present and throat without exudate, no drooling, no hoarseness, no trismus, uvula midline. NECK: Supple. No lymphadenopathy CHEST: Clear to auscultation, breath sounds equal. No wheezing, rhonchi, rales, or stridor. No respiratory distress, speaks in full sentences.SAO2 100% on room air HEART: Regular rate and rhythm. No murmur heard. SKIN: Warm, dry, no rash. NEURO: Alert and oriented x3. PSYCH: Normal mood and affect Course Course Emergency Course: Patient is aware of diagnosis, understands and agrees to treatment plan.? Anticipatory guidance given.? Patient agrees to follow-u
== END 2023-04-08 12:08 | disposition home or self-care (01) ==
PROVIDERS: Emergency Provider Registered Nurse
DX: J06.9 Acute upper respiratory infection, unspecified (principal); J02.9 Acute pharyngitis, unspecified
CPT/HCPCS: 87081; 87880; 99213; G0463

== ENCOUNTER 2023-05-20 08:02 | Emergency (ER) | payer OTHER, SELFPAY ==
--- NOTE | 2023-05-20 08:13 | ED.URI ---
HPI - URI/Sore Throat General Chief Complaint: Upper Respiratory Infection Stated Complaint: sob,congestion,headache Time Seen by Provider: 05/20/23 08:14 Source: patient, RN notes reviewed and old records reviewed Mode of arrival: ambulatory Limitations: no limitations History of Present Illness HPI Narrative: 33-year-old female presents to [facility] with complaints of cough, congestion, headache, myalgia this started 2-3 days ago. Patient taking [id number] medications with no relief. Patient also states had to use inhaler, that she has not use since high school. Patient denies dizziness, weakness, chest pain, shortness of breath, vomiting. MD elicited complaint: cough and nasal congestion Onset (ago): day(s) (3) Related Data Home Medications Medication Instructions Recorded Confirmed albuterol sulfate 90 mcg/actuation 90 mcg inhalation DIRECTED 05/20/23 05/20/23 aerosol inhaler Allergies Allergy/AdvReac Type Severity Reaction Status Date / Time Penicillins Allergy Severe ANAPHYLACTIC Verified 04/08/23 11:29 SHOCK latex AdvReac Intermediate Itching,HIV Verified 04/08/23 11:29 ES Review of Systems Constitutional: Constitutional: Reports as per HPI, Reports body ache(s) and Reports headache(s) Eyes: Eyes: Reports no additional eye complaints ENT: Reports as per HPI, Reports nasal congestion, Reports nasal discharge and Reports sinus pressure Cardiovascular: Cardiovascular: Reports no additional cardiovascular complaints Respiratory: Respiratory: Reports as per HPI, Reports chest congestion and Reports cough Neurologic: Reports system reviewed and no additional complaints, except as documented PMFSH Past Medical History Medical History Depression Exercise-induced asthma Ovarian cyst Surgical History Surgical History H/O section H/O tubal ligation Hx of tonsillectomy [place] teeth extracted Family History Family History Mother Carcinoma of colon Grandparent Arthritis Social History Social History Smoking status: Never smoker Alcohol intake: current Alcohol use details: social Substance use: never Living arrangements: with family Gender identity (if verbalized by the patient): Female Comments At the time of my signature, I reviewed and agree with the nursing past medical, surgical, social, and family history. There is no relevant family history pertinent to the patient complaint. Exam Const: General: cooperative, healthy appearing, no acute distress and well nourished Nutritional Appearance: well nourished Orientation/consciousness: patient oriented x3 Limitations: no limitations HENMT: Head: normal to inspection and normocephalic Ears: external ears normal, TM's normal bilaterally, mastoids normal and Abnormal EAC present Face/Nose/Sinus: Nasal discharge present purulent and Facial tenderness on exam of face and sinuses Face and sinus: normal facial exam Mouth: Yes Normal oral and palatal mucosa present, Yes oropharynx normal and Yes moist mucous membranes Throat: posterior oropharynx normal, tonsils normal, uvula midline and no uvular edema Eyes: General: appearance normal, both eyes and all related structures Sclera: sclerae normal Pupils: Equal, round and reactive pupils present Resp: Effort & Inspection: normal respiratory effort, able to speak in complete sentences, no audible wheezes, no cough, no respiratory distress and no retractions Auscultation: clear to auscultation bilaterally, no crackles, no rales, no rhonchi and no wheezes Cardio: Rate: regular rate Rhythm: regular rhythm Skin: General skin exam: normal color and no rashes or lesions noted Neuro: General: patient oriented x3 Cranial nerves: Yes Equal
[2023-05-20 08:18] VITALS: BP 101/72; PULSE 85; RESP 18; TEMP 36.7; O2SAT 100
== END 2023-05-20 09:00 | disposition home or self-care (01) ==
PROVIDERS: Emergency Provider Registered Nurse; PCP Hospitalist
DX: J40 Bronchitis, not specified as acute or chronic (principal); J06.9 Acute upper respiratory infection, unspecified; Z20.822 Contact with and (suspected) exposure to COVID-19
CPT/HCPCS: 87426; 87804; 99213; C9803; G0463

== ENCOUNTER 2023-12-29 08:21 | Emergency (ER) | payer OTHER, SELFPAY ==
[2023-12-29 08:53] VITALS: BP 100/65; PULSE 73; RESP 16; TEMP 36.7; O2SAT 100
--- NOTE | 2023-12-29 09:26 | ED.URI ---
HPI - URI/Sore Throat General Chief Complaint: Upper Respiratory Infection Stated Complaint: RSV symptoms Time Seen by Provider: 12/29/23 09:26 History of Present Illness HPI Narrative: patient presents with complaints of fever, headache, cough that began this morning. She reports that she also has a sore throat and her left ear hurts. Patient reports that her children have strep throat and RSV. She is concerned that she may have the same. She declines flu or COVID testing today. She denies any rash. No meningeal symptoms. No GI symptoms. She is requesting a note for work. Related Data Home Medications Medication Instructions Recorded Confirmed multivit with minerals-iron 18 tablet PO 12/29/23 mg-folic ac 400 mcg-vit K 25 mcg tablet (Adults Multivitamin) Allergies Allergy/AdvReac Type Severity Reaction Status Date / Time Penicillins Allergy Severe ANAPHYLACTIC Verified 12/29/23 08:52 SHOCK latex AdvReac Intermediate Itching,HIV Verified 12/29/23 08:52 ES Review of Systems Review of Systems: All systems reviewed & are unremarkable except as noted in HPI and below Constitutional: Constitutional: Reports as per HPI, Reports no additional constitutional complaints, Reports body ache(s), Reports chills, Reports fever(s) and Reports headache(s) ENT: Reports system reviewed and no additional complaints, except as documented and Reports as per HPI Cardiovascular: Cardiovascular: Reports no additional cardiovascular complaints Respiratory: Respiratory: Reports as per HPI and Reports no additional respiratory complaints Gastrointestinal: Gastrointestinal: Reports no additional gastrointestinal complaints PMFSH Past Medical History Medical History Depression Exercise-induced asthma Ovarian cyst Surgical History Surgical History H/O section H/O tubal ligation Hx of tonsillectomy [place] teeth extracted Family History Family History Mother Carcinoma of colon Grandparent Arthritis Social History Social History Smoking status: Never smoker Alcohol intake: current Alcohol use details: social Substance use: never Living arrangements: with family Gender identity (if verbalized by the patient): Female Exam Const: General: cooperative, no acute distress, alert and awake Orientation/consciousness: oriented to person, oriented to place and oriented to time HENMT: Head: normal to inspection Ears: TM's normal bilaterally Mouth: Yes oropharynx normal and Yes moist mucous membranes Teeth and gingiva: dentition normal Throat: posterior oropharynx normal Eyes: General: appearance normal, both eyes and all related structures Neck: Neck: normal visual inspection and no meningeal signs Resp: Effort & Inspection: normal respiratory effort and able to speak in complete sentences Auscultation: clear to auscultation bilaterally, no crackles, no rales, no rhonchi and no wheezes Cardio: Palpation: normal PMI Rate: regular rate Rhythm: regular rhythm Heart sounds: S1 normal heart sound present and S2 normal heart sound present Skin: Rashes: no rashes Neuro: General: oriented to person, oriented to place and oriented to time Cranial nerves: Yes CN's II-XII intact bilaterally Psych: Appearance: grossly normal Thought process: Normal thought process present Insight: Good insight present (Psych) Judgement: Good judgement present (Psych) Course Course Level of Care: Express Care Visit Vital Signs Vital signs: Vital Signs Temperature 98.0 F 12/29/23 08:53 Pulse Rate 73 12/29/23 08:53 Respiratory Rate 16 12/29/23 08:53 Blood Pressure 100/65 12/29/23 08:53 Pulse Oximetry 100 12/29/23 08:53 Oxygen Delivery Room Air 12/29/23 08:53
[2023-12-29 09:41] LABS: EDSTREPNEGPOS1 Presumptive Negative
== END 2023-12-29 09:38 | disposition home or self-care (01) ==
PROVIDERS: Emergency Provider Nurse Practitioner Family; PCP Hospitalist
DX: J06.9 Acute upper respiratory infection, unspecified (principal); J45.990 Exercise induced bronchospasm
CPT/HCPCS: 87081; 87880; 99213; G0463

== ENCOUNTER 2024-04-04 08:00 | Emergency (ER) | payer OTHER, SELFPAY ==
--- NOTE | 2024-04-04 08:09 | ED.URI ---
HPI - URI/Sore Throat General Chief Complaint: Upper Respiratory Infection Stated Complaint: fever and chills Time Seen by Provider: 04/04/24 08:38 Source: patient and RN notes reviewed Mode of arrival: ambulatory Limitations: no limitations History of Present Illness HPI Narrative: 33-year-old female with history of asthma presents with concern for fever, congestion, shortness of breath, headache, ear pain. Reports symptoms started yesterday evening, the fever started this morning. Reports both of her kids have COVID. She reports she has been using her albuterol inhaler as needed. MD elicited complaint: fever and nasal congestion Related Data Allergies Allergy/AdvReac Type Severity Reaction Status Date / Time Penicillins Allergy Severe ANAPHYLACTIC Verified 04/04/24 08:16 SHOCK latex AdvReac Intermediate Itching,HIV Verified 04/04/24 08:16 ES Review of Systems Review of Systems: CONSTITUTIONAL: Reports malaise, fever. EYES: Denies visual changes, redness, or discharge. ENT: Reports rhinorrhea, congestion, otalgia CARDIOVASCULAR: Denies chest pain, palpitations, or edema. RESPIRATORY: Reports cough, shortness of breath GASTROINTESTINAL: Denies abdominal pain, nausea, vomiting, diarrhea SKIN: Denies rash or itching. MUSCULOSKELETAL: Denies myalgia. NEUROLOGIC: Reports headache. All systems reviewed & are unremarkable except as noted in HPI and below PMFSH Past Medical History Medical History Depression Exercise-induced asthma Ovarian cyst Surgical History Surgical History H/O section H/O tubal ligation Hx of tonsillectomy [place] teeth extracted Family History Family History Mother Carcinoma of colon Grandparent Arthritis Social History Social History Smoking status: Never smoker Alcohol intake: current Alcohol use details: social Substance use: never Living arrangements: with family Gender identity (if verbalized by the patient): Female Comments At time of signature, agree with nursing past medical, surgical, social and family history. There is no relevant family history pertinent to the presenting complaint Exam Narrative: GENERAL: Nontoxic-appearing, well-nourished, and in no acute distress. HEAD: Normocephalic EYES: PERRLA, conjunctivae clear ENT: Nares clear. Mucous membranes moist. TM pearly clay with sharp light reflex bilaterally; no tragal tenderness. Oropharynx not erythematous without lesions. Tonsils not enlarged and without exudate, no drooling, no hoarseness, no trismus, uvula midline. NECK: Supple. No lymphadenopathy CHEST: Clear to auscultation, breath sounds equal. No wheezing, rhonchi, rales, or stridor. No respiratory distress, speaks in full sentences. HEART: Regular rate and rhythm. No murmur heard. SKIN: Warm, dry, no rash. NEURO: Alert and oriented x3. PSYCH: Normal mood and affect Course Course Emergency Course: Patient is aware of diagnosis, understands and agrees to treatment plan. Anticipatory guidance given. Patient agrees to follow-up as directed and is aware of reasons to seek care at the emergency department. Portions of this record may have been created with voice recognition software Level of Care: Express Care Visit Vital Signs Vital signs: Reviewed. MDM - URI/Sore Throat MDM Narrative Medical decision making narrative: Differential diagnosis considered: Cook virus, strep pharyngitis, allergic rhinitis, upper respiratory tract infection, sinusitis, rhinosinusitis, nasopharyngitis. viral pharyngitis, otitis media, otitis externa, pneumonia, bronchitis, viral cough syndrome, viral syndrome, and influenza. Exam findings show no acute concerns or changes; patient is non-toxic appearing and is in no distress. Patient is appropriate for outpatient treatment and follow-up. Lab Data Attestation: I reviewed the patient's lab results. Critical Care Time Critical Care Time Critical Care Time: No Discharge Plan Discharge Clinical Impression: Viral illness, Close exposure to COVID-19 virus Patient Disposition: Home, Self-Care Condition: Stable Instructions: Viral Syndrome (ED) Additional Instructions: -Take strict precautions to prevent the spread of your virus. Be diligent about covering your cough (even when you are alone) and washing your hands frequently. -You may contagious until you have been symptom and/or fever free for 24 hours without fever reducing medicine -Alternate Ibuprofen and Tylenol for pain and fever relief (per package directions) -continue to use your inhaler as needed for shortness of breath, wheezing, chest tightness -Drink plenty of fluid - drink fluid with electrolytes such as Gatorade or other oral re-hydration solution. Avoid caffeine, which can make dehydration worse. -Get plenty of rest to help your body heal. -Use a cool mist humidifier for chest and nasal congestion. -Eat RAW honey or use cough drops to ease throat discomfort -Do not smoke or expose children to secondhand smoke -Wash your hands frequently. -Please follow-up with your primary care doctor in the next 1-2 days if your symptoms do not improve. -If you have any worsening of symptoms or any other concerns please go to the ED immediately. -Please take medications as prescribed and continue taking your home medications as usual. Prescriptions: New methylprednisolone [Medrol (Vic)] 4 mg tablets,dose pack See Rx Instructions .ROUTE .COMPLEX Qty: 21 0RF Rx Instructions: orally per package directions No Action albuterol sulfate 90 mcg/actuation HFA aerosol inhaler 2 puff inhalation Q4-6H PRN (Reason: shortness of breath or wheezing) Qty: 8.5 0RF Follow-up/Referrals: Davian,Evelina Castro MD [Primary Care Provider] - Stand Alone Forms: Work/School Release IP Time of Disposition: 08:47
[2024-04-04 08:12] VITALS: BP 105/61; PULSE 73; RESP 17; TEMP 36.8; O2SAT 100
[2024-04-04 09:13] LABS: EDCOVIDSCREEN Negative (Negative)
== END 2024-04-04 08:56 | disposition home or self-care (01) ==
PROVIDERS: Emergency Provider Nurse Practitioner; PCP Hospitalist
DX: B34.9 Viral infection, unspecified (principal); Z20.822 Contact with and (suspected) exposure to COVID-19; J45.990 Exercise induced bronchospasm
CPT/HCPCS: 87426; 99213; G0463

== ENCOUNTER 2024-09-20 08:39 | Emergency (ER) | payer OTHER, SELFPAY ==
--- NOTE | ~2024-09-20 | CT_ITS ---
EXAMINATION: CTA BRAIN/CAROTID DATE: 09/20/2024 10:41 INDICATION: Cervical radiculopathy TECHNIQUE: Computed tomographic angiography (CTA) of the head and neck was performed with 100 mL Omni paque-350 intravenous contrast. Multiplanar reconstructions and maximum intensity projection 3D-recon structions of the carotid arteries and of the intracranial arteries were created by the technologist on a separate workstation. Precontrast CT of the head was also obtained. Automated exposure control and iterative reconstruction technique were employed.The dose-length product was 1467.89 mGy-cm. COMPARISON: None. FINDINGS: Carotid arteries: Visualized aortic arch and great vessels arising from the arch are normal in caliber with no evident atherosclerotic plaque and no dissection. There is no atherosclerotic plaque with 0% stenosis of the right and left carotid bulbs relative to normal distal artery lumen diameter (NASCET criteria). Bilat eral vertebral arteries are codominant also without evident atherosclerotic plaque. Visualized upper lungs are clear. Visualized superior mediastinum and cervical soft tissues are unremarkable. Mild spo ndylosis in the lower cervical spinewith mild central canal stenosis and bilateral neural foraminal s tenosis at C5-C6 and C6-C7. Head: No acute intracranial hemorrhage, acute infarction or abnormal extra axial fluid collection. Ventricl es are normal and symmetric. No mass/mass effect. No abnormally enhancing brain lesions on the postco ntrast imaging The orbits, paranasal sinuses and mastoid air cells are normal. Intracranial arteries There is no hemodynamically significant stenosis in the vertebral, basilar and internal carotid arter ies. Vertebral arteries are codominant. There are no aneurysms identified. Both A1 and P1 segments a re patent. Cerebral arterial arborization appears symmetric. IMPRESSION: 1. No atherosclerotic plaque with 0% stenosis of the right and left carotid bulbs relative to normal distal artery lumen diameter (NASCET criteria). 2. Normal head CT cerebral CT angiogram. 3. Mild lower cervical spondylosis with mild central canal and bilateral neural foraminal stenosis at C5-C6 and C6-C7. Given the provided symptoms would consider cervical MRI for further evaluation. Reviewed, dictated and finalized at location A. IMPRESSION: 1. No atherosclerotic plaque with 0% stenosis of the right and left carotid bul bs relative to normal distal artery lumen diameter (NASCET criteria). 2. Normal head CT cerebral CT angiogram. 3. Mild lower cervical spondylosis with mild central canal and bilateral neural foraminal stenosis at C5-C6 and C6-C7. Given the provided symptoms would consi sylvia cervical MRI for further evaluation.
--- OUTSIDE RECORDS SUMMARY | 2024-09-20 08:57 | XMS_ITS | Clinical Summary ---
Author Organization [facility] Care Team Providers Care Sole Cutter Name Role Phone Unavailable Primary Care Provider Unavailabl e Social History Tobacco Use Types Packs/Day Years Used Date Smoking Tobacco: Never Assessed Comments Unknown Sex and Gender Information Value Date Recorded Sex Assigned at Not on file Legal Sex Female 9:01 PM CDT Gender Identity Not on file Sexual Orientation Not on file Plan of Treatment Health Maintenance Due Date Last Done Comments Hepatitis C Virus (HCV) Screening 1989 TdaP Immunization 1989 Hepatitis B Immunization (1 of 3 - 19+ 3-dose series) 2008 Pap Smear 2010 Cervical Cancer Screening (CCS) 2019 HPV/Cotest 2019 Influenza Immunization (#1) 2024 SARS-COV-2 Immunization ( season) 2024 Respiratory Syncytial Virus (RSV) Immunization (Adult) (1 - 1-dose 75+ series) 2064 Meningococcal Immunization (ACWY) Aged Out No longer eligible based on patient's age to complete this topic Pneumococcal Immunization Combined Aged Out No longer eligible based on patient's age to complete this topic Rotavirus Immunization Aged Out No lo nger eligible based on patient's age to complete this topic
--- OUTSIDE RECORDS SUMMARY | 2024-09-20 08:57 | XMS_ITS | Clinical Summary ---
Author Organization [facility] Address [address] [place] [address] Care Team Providers Care Reinforcing Bar Setter Name Role Phone Mckinley Braun MD Primary Care Provider + Source Comments [facility],non-owned Affiliates and Associated Physician Practices is amultiple site organization consisting of ambulatory clinics and hospital sitesin [place], [place], [place] and [place]. This disclosure is being madepursuant to the Care Everywhere program and may not contain all information available regarding this patient. Last updated 18.[facility] Allergies Active Allergy Reactions Criticality Noted Date Comments Latex Rash,Itching Medium 04/03/2019 Penicillins Anaphylaxis High 09/19/2013 Patient was very young, states she thinks it messes with her breathing. Medications * Be aware that medications may not be up to date on this document. Alwaysverify current medications with the patient. 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 Gender Identity Not on file Sexual Orientation Not on file Last Filed Vital Signs Vital Sign Reading Time Taken Comments Blood Pressure 104/58 11/25/2020 12:02 PM CDT Pulse 68 11/25/2020 12:02 PM CDT Temperature 36.7 C (98.1 F) 11/25/2020 12:02 PM CDT Respiratory Rate 16 04/03/2019 12:00 PM CDT Oxygen Saturation 100% 04/03/2019 12:00 PM CDT Inhaled Oxygen Concentration - - Weight 74.8 kg (165 lb) 11/25/2020 12:02 PM CDT Height 157.5 cm (5' 2 ) 11/25/2020 12:02 PM CDT Body Mass Index 30.18 11/25/2020 12:02 PM CDT Plan of Treatment Health Maintenance Due Date Last Done Comments Opioid Medication Agreement - Annual 1989 HIV SCREENING 2004 HEPATITIS C SCREENING 04/26/2007 DTAP/TDAP/TD VACCINES (1 - Tdap) 2008 HEPATITIS B VACCINE (1 of 3 - 19+ 3-dose series) 2008 COVID-19 VACCINE (1 - 2023-2 5 season) 2024 DEPRESSION SCREENING 06/07/2024 INFLUENZA VACCINE (Season Ended) 2025 ZOSTER VACCINE (1 of 2) 2039 HIB VACCINE Aged Out No longer eligi ble based on patient's age to complete this topic HPV VACCINE Aged Out No longer eligi ble based on patient's age to complete this topic MENINGOCOCCAL (Group B) VACC INE SHARED DECISION-MAKING Aged Out No longer eligibl e based on patient's age to complete this topic MENINGOCOCCAL GROUPS A/C/Y/W VACCINE Aged Out No longer eligible b ased on patient's age to complete this topic PNEUMOCOCCAL VACCINE Aged Out No long er eligible based on patient's age to complete this topic Insurance [facility] Advance Directives * Full Code (Latest Code Status on File) Date Activated Date Inactivated Comments 04/02/2019 3:28 PM 04/03/2019 1:17 PM Care Teams Reinforcing Bar Setter Relationship Specialty Start Date End Date Mckinley Braun MD PCP - General 10/31/08
--- NOTE | 2024-09-20 09:35 | ED_ITS ---
HPI - Neck Pain/Injury General Chief Complaint: Neck Pain/Injury Stated Complaint: pain in neck and back and right arm Time Seen by Provider: 09/20/24 09:02 History of Present Illness HPI Narrative: 34-year-old female with no significant medical history presents to the emergency department for right-sided neck pain and stiffness that radiates down her right arm. Patient states she has been sleeping on her parents couch while her house is being renovated. About a week ago she woke up and felt some stiffness in her right neck. States she is not having pain to the right side of her neck, down into her right shoulder blade and yesterday began developing shooting pains down her right arm and numbness and tingling into her 3rd through 5th digits. She is also noting some clumsiness with the right hand she is attributing to sensory deficits. She went to her chiropractor yesterday was adjusted and had some improvement however pain has persisted so she came to the ED. She notes she took Tylenol and ibuprofen yesterday with improvement, has not taken anything today. She denies fever, other procedures to her neck, bowel or bladder changes, nausea or vomiting, history of immuno compromising conditions or use of immunosuppressants or steroids, numbness or weakness to her legs, saddle anesthesia. Related Data Allergies Allergy/AdvReac Type Severity Reaction Status Date / Time Penicillins Allergy Severe ANAPHYLACTIC Verified 09/20/24 10:00 SHOCK latex AdvReac Intermediate Itching,HIV Verified 09/20/24 10:00 ES Review of Systems 2 Review of Systems: All systems reviewed & are unremarkable except as noted in HPI and below PMFSH Past Medical History Medical History Ovarian cyst Depression Exercise-induced asthma Surgical History Surgical History H/O tubal ligation Hx of tonsillectomy [place] teeth extracted H/O section Family History Family History Mother Carcinoma of colon Grandparent Arthritis Social History Social History Smoking status: Never smoker Alcohol intake: current Alcohol use details: social Substance use: never Living arrangements: with family Gender identity (if verbalized by the patient): Female Exam 2 Narrative: GENERAL: Well-appearing, well-nourished, and in no acute distress. HEAD: Normocephalic, atraumatic. EYES: EOMI. ENT: Nares clear, no rhinorrhea or epistaxis. Mucous membranes moist. NECK: No midline cervical spinous tenderness, crepitus, step-offs or deformities. Tenderness to the right trapezius and scalene muscles with no overlying skin changes. Full range of motion of neck, reported pain and trapezius with all range. No nuchal rigidity. CHEST: Clear to auscultation. No respiratory distress. HEART: Regular rate and rhythm. No murmur heard. Normal peripheral pulses. EXTREMITIES: Normal range of motion. No edema. SKIN: Warm, dry, no rash. NEURO: No focal deficits. Alert and oriented x4. Decreased sensation reported to the 5th digit and over the axillary nerve distribution. Strength is 5/5 in BUE and BLE. Sensation intact to the LUE and BLE, no saddle anesthesia, no ataxia. Course Vital Signs Vital signs: Vital Signs Pulse Rate 62 09/20/24 10:01 Respiratory Rate 16 09/20/24 10:01 Blood Pressure 109/63 09/20/24 10:01 Pulse Oximetry 100 09/20/24 10:01 Temperature 97.6 F 09/20/24 12:02 Pulse Rate 67 09/20/24 11:47 Respiratory Rate 15 09/20/24 11:47 Blood Pressure 100/64 09/20/24 11:47 Pulse Oximetry 98 09/20/24 11:47 MDM - Neck Pain/Injury MDM Narrative Medical decision making narrative: 34-year-old female no significant past medical history presents to the ED for 1 week of progressing right-sided neck pain for the past week, patient reporting clumsiness to the right hand numbness and tingling to the right arm. Patient did have cervical adjustments yesterday by her chiropractor. On exam she does have decreased sensation to the lateral aspect of the proximal humerus and into the ulnar nerve distribution, following C6-C8 dermatomes. Strength is 5/5 throughout. She has no saddle anesthesia or bowel or bladder changes. No nuchal rigidity, no in any compromising conditions or use of immunosuppressant/steroids and she is afebrile. Given recent adjustment by chiropractor and new onset paresthesias, CTA brain carotid obtained to evaluate for dissection. CTA shows the following: IMPRESSION: 1. No atherosclerotic plaque with 0% stenosis of the right and left carotid bulbs relative to normal distal artery lumen diameter (NASCET criteria). 2. Normal head CT cerebral CT angiogram. 3. Mild lower cervical spondylosis with mild central canal and bilateral neural foraminal stenosis at C5-C6 and C6-C7. Given the provided symptoms would consider cervical MRI for further evaluation. Patient updated on results. CT findings consistent with presentation. I discussed findings with neurosurgeon, Dr. Paredes, who agrees that patient is safe for outpatient management. Advises follow-up with PCP, MRI and follow-up with Neurosurgery if any abnormalities, outpatient PT. also agrees with steroid taper, muscle relaxants, anti-inflammatories, lidocaine patches. Patient was given Decadron, Flexeril, Toradol and lidocaine patch in the ED. she was given strict ED return precautions including changes in bowel or bladder, clumsiness due to weakness, falls, fever. She is agreeable with the plan verbalized understanding. Discharged in stable condition. Lab Data 09/20/24 09:58 09/20/24 09:58 Labs: Lab Results 09/20/24 Range/Units 09:58 WBC 4.8 (4.5-10.0) K/mm3 RBC 4.50 (4.2-5.4) M/mm3 Hgb 13.4 (12.0-15.0) g/dL Hct 42.6 (37.0-47.0) % MCV 94.7 (80-100) fl MCH 29.8 (26-34) pg MCHC 31.5 L (32-36) g/dl RDW 13.3 (11.5-14.5) % Plt Count 256 (150-375) k/mm3 MPV 10.3 (7.4-10.4) fl Immature Gran % (Auto) 0.2 (0-0.5) % Neut % (Auto) 53.7 (45.5-73.1) % Lymph % (Auto) 30.5 (18.3-44.2) % [place] % (Auto) 12.5 H (2.6-8.5) % Eos % (Auto) 2.3 (0-4.4) % Baso % (Auto) 0.8 (0.2-1.2) % Lymph # (Auto) 1.46 (0.9-3.2) K/mm3 [place] # (Auto) 0.6 (0.1-0.6) K/mm3 Eos # (Auto) 0.1 (0-0.3) K/mm3 Baso # (Auto) 0.0 (0.0-0.1) K/mm3 Abs Immat Gran (auto) 0.01 (0.00-0.031) K/mm3 Absolute Neuts (auto) 2.6 (1.3-6.7) K/mm3 Absolute Nucleated RBC 0.000 (0.0-0.012) K/mm3 Nucleated RBC % 0.0 (0.0-0.2) % PT 11.9 (11.1-14.7) Seconds INR 0.9 APTT 25.8 (22.3-36.8) Seconds Sodium 139 (137-145) mmol/L Potassium 4.5 (3.4-5.0) mmol/L Chloride 104 (98-107) mmol/L Carbon Dioxide 26 (22-30) mmol/L Anion Gap 9 (4-12) mmol/L BUN 17 (7-17) mg/dL Creatinine 0.81 (0.7-1.0) mg/dL Estim Creat Clear Calc Not Reportable Estimated GFR > 60 (59 - ) Glucose 89 (65-110) mg/dL Calcium 9.1 (8.4-10.2) mg/dL Total Bilirubin 0.3 (0.2-1.3) mg/dL AST 18 (14-36) U/L ALT 19 (6-35) U/L Alkaline Phosphatase 52 (38-126) U/L Total Protein 7.0 (6.3-8.2) g/dL Albumin 4.4 (3.5-5.1) g/dL Discharge Plan Discharge Clinical Impression: Cervical radiculopathy Patient Disposition: Home Condition: Stable Instructions: Antibiotic Form, Cervical Radiculopathy (ED) Additional Instructions: You were evaluated in the emergency department for right-sided neck pain and numbness and tingling into the right arm. CT scan shows normal vasculature but does show lower cervical spondylosis and mild central canal and bilateral neural foraminal stenosis at C5-C6 and C6-C7 which is consistent with her presentation. Please take the steroids, muscle relaxers, anti-inflammatories and use the lidocaine patches as directed. Please follow-up closely with her primary care provider she will need outpatient physical therapy and possible MRI. He received an MRI and there are abnormalities, you can follow-up with neurosurgery office provided. Return to the emergency department if you develop a fever of 100.4 or greater, weakness of your arm or hand, clumsiness due to the weakness, difficulty walking or you are off balance, changes in her bowel or bladder, or other concerning symptoms. Patient Language: Lithuanian Prescriptions: New methylprednisolone [Medrol (Vic)] 4 mg tablets,dose pack See Rx Instructions PO .COMPLEX Qty: 21 0RF Rx Instructions: orally per package directions cyclobenzaprine 10 mg tablet 10 mg PO TID PRN (Reason: muscle spasm) Qty: 14 0RF lidocaine 5 % adhesive patch,medicated 1 patch topical DAILY Qty: 15 0RF Rx Instructions: leave on most painful area for up to 12 hrs. do not use more than 1 patch in a 24-hour period. naproxen 500 mg tablet 500 mg PO BID PRN (Reason: pain) Qty: 20 0RF No Action albuterol sulfate 90 mcg/actuation HFA aerosol inhaler 2 puff inhalation Q4-6H PRN (Reason: shortness of breath or wheezing) Qty: 8.5 0RF methylprednisolone [Medrol (Vic)] 4 mg tablets,dose pack See Rx Instructions .ROUTE .COMPLEX Qty: 21 0RF Rx Instructions: orally per package directions Follow-up/Referrals: Davian,Evelina Castro MD [Primary Care Provider] - Kirstie Paredes MD [Physician] - Stand Alone Forms: Work/School Release IP
[2024-09-20 10:01] VITALS: BP 109/63; PULSE 62; RESP 16; O2SAT 100
[2024-09-20 10:05] LABS: Basophils Percent Auto 0.8 % (0.2-1.2); Eosinophils Absolute Auto 0.1 K/mm3 (0-0.3); Eosinophils Percent Auto 2.3 % (0-4.4); Hematocrit 42.6 % (37.0-47.0); Hemoglobin 13.4 g/dL (12.0-15.0); Immature Granulocyte Absolute 0.01 K/mm3 (0.00-0.031); Immature Granulocyte Percent A 0.2 % (0-0.5); Lymphocytes Absolute Auto 1.46 K/mm3 (0.9-3.2); Lymphocytes Percent Auto 30.5 % (18.3-44.2); Mean Corpuscular HGB Conc 31.5 g/dl (32-36); Mean Corpuscular Hemoglobin 29.8 pg (26-34); Mean Corpuscular Volume 94.7 fl (80-100); Mean Platelet Volume 10.3 fl (7.4-10.4); Monocytes Absolute Auto 0.6 K/mm3 (0.1-0.6); Monocytes Percent Auto 12.5 % (2.6-8.5); Neutrophils Absolute Auto 2.6 K/mm3 (1.3-6.7); Neutrophils Percent Auto 53.7 % (45.5-73.1); Platelet Count Result 256 k/mm3 (150-375); Red Cell Distribution Width 13.3 % (11.5-14.5); White Blood Count 4.8 K/mm3 (4.5-10.0)
[2024-09-20 10:15] LABS: Alanine Aminotransferase 19 U/L (6-35); Albumin Level 4.4 g/dL (3.5-5.1); Alkaline Phosphatase 52 U/L (38-126); Anion Gap 9 mmol/L (4-12); Aspartate Amino Transferase 18 U/L (14-36); Bilirubin,Total 0.3 mg/dL (0.2-1.3); Blood Urea Nitrogen 17 mg/dL (7-17); Calcium 9.1 mg/dL (8.4-10.2); Carbon Dioxide 26 mmol/L (22-30); Chloride 104 mmol/L (98-107); Estimated Glomerular Filt Rate > 60; Glucose 89 mg/dL (65-110); Potassium 4.5 mmol/L (3.4-5.0); Sodium 139 mmol/L (137-145)
[2024-09-20 10:20] LABS: INR 0.9; Partial Thromboplastin Time 25.8 Seconds (22.3-36.8); Prothrombin Time 11.9 Seconds (11.1-14.7)
--- OUTSIDE RECORDS SUMMARY | 2024-09-20 10:24 | XMS_ITS | Referral Summary ---
Author Organization [facility] Address [address] [place] [id number] Care Team Providers Care Chronometer Tester Name Role Phone Evelina Marcelo MD Primary Care Pro vider Allergies Active Allergy Reactions Criticality Noted Date Comments Latex Itching,Rash Medium 03/02/2019 Penicillins Anaphylaxis High 09/19/2013 Patient was very young, states she thinks it messes with her breathing. Childhood allergy; thinks it effects her breathing. Medications omeprazole (PriLOSEC) 20 mg capsuleIndicati ons:Abdominal pain Take 1 capsule daily for 8 weeks. Then take 1 capsule every other day for 2 weeks then stop. 63 capsule 11/26/2022 Active Active Problems Problem Noted Date Diagnosed Date Diarrhea 06/26/2022 Overview (06/26/2022): Added automatically from request for surgery [id number] Hypersomnia 10/14/2021 Assessment & Plan (10/14/2021 11:01 AM CDT): The patient presents with nocturnal gasping episodes with palpitations and daytime hypersomnia. Have recommended proceeding with a nocturnal polysomnogram with a split night protocol if necessary and no MSLT. She will follow-up with me in 3 months. Family history of colon cancer 08/22/2021 Overview (08/22/2021): Added automatically from request for surgery [id number] Immunizations Immunization Administration Dates Next Due Influenza, Unspecified 03/21/2021(Deferred: Fay ent Refused) Social History Tobacco Use Types Packs/Day Years Used Date Smoking Tobacco: Never Smokeless Tobacco: Never Tobacco Cessation:Counseling Given: Not Answered AUDIT-C Answer Date Recorded Q1: How often do you have a drink containing alc ohol? Monthly or less 07/02/2022 Q2: How many drinks containi ng alcohol do you have on a typical day when you are drinking? 1 or 2 07/02/2022 Q3: How often do you have si x or more drinks on one occasion? 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 PRINTER Gender Identity Not on file Sexual Orientation Not on file Last Filed Vital Signs Vital Sign Reading Time Taken Comments Blood Pressure 102/58 11/26/2022 2:34 PM CDT Pulse 67 11/26/2022 2:34 PM CDT Temperature 36.7 C (98 F) 11/26/2022 2:34 PM CDT Respiratory Rate 16 11/26/2022 2:34 PM CDT Oxygen Saturation 98% 11/26/2022 2:34 PM CDT Inhaled Oxygen Concentration - - Weight 82.6 kg (182 lb 3.2 oz) 11/26/2022 2:34 P M CDT Height 157.5 cm (5' 2.01 ) 11/26/2022 2:34 PM CD T Body Mass Index 33.32 11/26/2022 2:34 PM CDT Plan of Treatment Not on file Insurance [facility] Care Teams Chronometer Tester Relationship Specialty Start Date End Date Evelina Marcelo MD PCP - General Family Medicine 08/15/21
--- OUTSIDE RECORDS SUMMARY | 2024-09-20 10:24 | XMS_ITS | Clinical Summary ---
Author Organization [facility] Care Team Providers Care Quality System Manager Name Role Phone Unavailable Primary Care Provider [...]
--- OUTSIDE RECORDS SUMMARY | 2024-09-20 10:24 | XMS_ITS | Clinical Summary ---
Author Organization [facility] Address [address] [place] [address] Care Team Providers Care Food Processing Plant Manager Name Role Phone None, Provider MD Primary Care Provider Unavaila ble Allergies Active Allergy Reactions Criticality Noted Date Comments Latex Rash Low 03/02/2019 Penicillins Anaphylaxis High 09/19/2013 Childhood allergy; thinks it effects her breathing. Medications ondansetron (ZOFRAN ODT) 4 MG disintegrating tabletIndications:A cute nonintractable headache, unspecified headache type,Nausea Take 1 tablet (4 mg total) by mouth every 8 (eight) hours as needed for Nausea. 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 06/17/2018 Family History Medical History Relation Comments No Known Problems Father Arthritis Maternal Grandfather No Known Problems Maternal Grandmother Colon Cancer Mother No Known Problems Paternal Grandfather No Known Problems Paternal Grandmother Relation Status Comments Father Maternal Grandfather Maternal Grandmother Mother Alive Paternal Grandfather Paternal Grandmother Social History Tobacco Use Types Packs/Day Years Used Date Smoking Tobacco: Never Smokeless Tobacco: Never Tobacco Cessation:Counseling Given: No Alcohol Use Standard Drinks/Week Comments No 0 (1 standard drink = 0.6 oz pur e alcohol) AUDIT-C Answer Date Recorded Frequency of Alcohol Consumption Monthly or less 05/27/2018 Average Number of Drinks Not on file 018 Frequency of Binge Drinking Not on file 05/08 PHQ-2 Answer Date Recorded PHQ-2 Score - If the patient scores above 3, please move on to questions 3-9 0 05/17/2020 Comments No Sex and Gender Information Value Date Recorded Sex Assigned at Not on file Legal Sex Female 5:47 PM CDT Gender Identity Not on file Sexual Orientation Not on file Last Filed Vital Signs Vital Sign Reading Time Taken Comments Blood Pressure 109/67 05/10/2019 4:51 PM TELEGRAPH SERVICE CLERK Pulse 71 05/10/2019 4:51 PM TELEGRAPH SERVICE CLERK Temperature 36.4 C (97.5 F) 05/17/2020 1:11 PM TELEGRAPH SERVICE CLERK patient reported Respiratory Rate 16 05/10/2019 4:51 PM TELEGRAPH SERVICE CLERK Oxygen Saturation 100% 05/10/2019 4:5 1 PM TELEGRAPH SERVICE CLERK Inhaled Oxygen Concentration - - Weight 70.8 kg (156 lb) 05/17/2020 1:11 PM TELEGRAPH SERVICE CLERK patient reported Height 157.5 cm (5' 2 ) 02/05/2020 8:58 AM CDT Body Mass Index 28.53 02/05/2020 8:58 AM CDT Plan of Treatment Health Maintenance Due Date Last Done Comments Cervical Cancer Screening Pa p Smear (Age 30 to 64) Every 3 Years 1989 Annual Physical 1992 Hepatitis C 2007 DTaP, Tdap and Td Vaccines ( 1 - Tdap) 2008 Hepatitis B Vaccines (1 of 3 - 19+ 3-dose series) 2008 Cervical Cancer Screening Pa p with HPV Testing (Age 30 to 64) Every 5 Years 2019 Cervical Cancer Screening with HPV 2019 COVID-19 Vaccine (2023-2 5 season) 2024 HPV Vaccines Aged Out No longer eligi ble based on patient's age to complete this topic Meningococcal B Vaccine Aged Out No l onger eligible based on patient's age to complete this topic Meningococcal Vaccine Aged Out No belkys willow eligible based on patient's age to complete this topic Pneumococcal Vaccine: Pediat rics (0 to 5 Years) and At-Risk Patients (6 to 49 Years) Aged Out No longer eligible b ased on patient's age to complete this topic RSV Immunizations Under 20 Months Aged Out No longer eligible based on patient's age to complete this topic Insurance Care Teams Food Processing Plant Manager Relationship Specialty Start Date End Date None, Provider, PCP - General UNKNOWN PHYSICIAN SPECIALTY 04/28/23
--- OUTSIDE RECORDS SUMMARY | 2024-09-20 10:24 | XMS_ITS | Clinical Summary ---
Author Organization [facility] Address [address] [place] [id number] Care Team Providers Care Pit Clerk Name Role Phone Evelina Marcelo MD Primary [...] (06/26/2022): Added automatically from request for surgery [id number] Hypersomnia 10/14/2021 Assessment & Plan (10/14/2021 11:01 AM CDT): The patient presents with nocturnal gasping episodes with palpitations and daytime hypersomnia. Have recommended proceeding with a nocturnal polysomnogram with a split night protocol if necessary and no MSLT. She will follow-up with me in 3 months. Family history of colon cancer 08/22/2021 Overview (08/22/2021): Added automatically from request for surgery [id number] Immunizations Immunization Administration Dates Next Due Influenza, Unspecified 03/21/2021(Deferred: Fay ent Refused) Surgical History Surgery Date Site/Laterality Comments SECTION TONSILLECTOMY COLONOSCOPY WISDOM TOOTH EXTRACTION Medical History Medical History Date Comments Sleep apnea Colon polyp Migraines Family History Medical History Relation Name Comments Arthritis Maternal Grandmother Colon cancer Mother Leukemia Paternal Grandmother Relation Name Status Comments Father Alive unsure Maternal Grandmother Mother Alive Paternal Grandmother Social History Tobacco Use Types [...] on file Legal Sex Female 12:54 PM TAIL TRIMMER Gender Identity Not on file Sexual Orientation Not on file Obstetrics History Last Filed Vital Signs Vital Sign Reading [...] 11/26/2022 2:34 PM CDT Plan of Treatment Health Maintenance Due Date Last Done Comments Cervical Cancer Screening 1989 Hepatitis C Screening 1989 DTaP/Tdap/Td Vaccine (1 - Tdap) 2000 Varicella Vaccines (1 of 2 - 13+ 2-dose series) 2002 Hepatitis B Screening 2007 Regular Well Visit/Exam 18-64 2007 Depression Screening 11/27/2023 11/26/2022, 08/15/2021, 08/15/2021 Influenza Vaccine (#1) 2024 HPV Vaccines Aged Out No longer eligi ble based on patient's age to complete this topic Pneumococcal vaccine <65 Aged Out No longer eligible based on patient's age to complete this topic Insurance [facility] Care Teams Pit Clerk Relationship Specialty Start Date End Date Evelina Marcelo MD PCP - General Family Medicine 08/15/21
--- OUTSIDE RECORDS SUMMARY | 2024-09-20 10:24 | XMS_ITS | Clinical Summary ---
Author Organization [facility] Address [address] [place] [address] Care Team Providers Care Airplane Pilot Commercial Name Role Phone Mckinley Braun MD Primary Care Provider + Source Comments [facility],non-owned Affiliates and Associated Physician Practices is amultiple site organization consisting of ambulatory clinics and hospital sitesin [place], [place], [place]. This disclosure is being madepursuant to the Care Everywhere program and may not contain all information available regarding this patient. Last updated 18.[facility] Allergies Active Allergy Reactions Criticality Noted Date [...] on file Legal Sex Female 6:24 PM LION TAMER Gender Identity Not on file Sexual Orientation [...] patient's age to complete this topic Insurance [facility] Advance Directives * Full Code (Latest Code Status on File) Date Activated Date Inactivated Comments 04/02/2019 3:28 PM 04/03/2019 1:17 PM Care Teams Airplane Pilot Commercial Relationship Specialty Start Date End Date Mckinley Braun MD PCP - General 10/31/08
--- OUTSIDE RECORDS SUMMARY | 2024-09-20 10:24 | XMS_ITS | Encounter Summary ---
Author Organization [facility] Address [facility] [place] [address] Care Team Providers Care Fudger Name Role Phone Juanita Braun MD Primary Care Provider [phone] None, Provider Primary Care Provider Unavaila ble Encounter Details Date Type Department Care Team (Late st Contact Info) Description 02/07/2020 [employer] Message Enc [facility] Family & Internal Medicine [address] [phone] Mychart, [facility] Provider Throat Culture Social History Tobacco Use Types Packs/Day Years Used Date Smoking Tobacco: Never Smokeless Tobacco: Never Alcohol Use Standard Drinks/Week Comments No 0 (1 standard drink = 0.6 oz pur e alcohol) AUDIT-C Answer Date Recorded Frequency of Alcohol Consumption Monthly or less 05/27/2018 Average Number of Drinks Not on file 018 Frequency of Binge Drinking Not on file 05/08 Comments No Sex and Gender Information Value Date Recorded Sex Assigned at Not on file Legal Sex Female 5:47 PM CDT Gender Identity Not on file Sexual Orientation Not on file documented as of this encounter Plan of Treatment Not on file documented as of this encounter Visit Diagnoses Not on filedocumented in this encounter Additional Health Concerns Infection Onset Date Last Indicated Resolved Time COVID-19 Rule Out 05/17/2020 05/17/2020 05/23/2020 3:33 PM PLANT PROTECTION GUARD documented as of this encounter Care Teams Fudger Relationship Specialty Start Date End Date Juanita Braun MD PCP - General INTERNAL MEDICINE 04/26/18 04/27/23 None, Provider, PCP - General UNKNOWN PHYSICIAN SPECIALTY 04/28/23 documented as of this encounter
[2024-09-20] MEDS: CYCLOBENZAPRINE HCL 10 MG TABLET PO (11:41)
[2024-09-20] MEDS: KETOROLAC 30 MG/ML VIAL (*BKC) IV PUSH (11:41)
[2024-09-20] MEDS: dexAMETHasone SOD PHOS INJ 10 MG/ML 1 ML VIAL IV PUSH (11:44)
[2024-09-20] MEDS: LIDOCAINE 5% PATCH 1 PATCH TRANSDERM (11:44)
[2024-09-20 11:47] VITALS: BP 100/64; PULSE 67; RESP 15; O2SAT 98
[2024-09-20 12:02] VITALS: TEMP 36.4
== END 2024-09-20 12:05 | disposition home or self-care (01) ==
PROVIDERS: Emergency Provider Physician Assistant; PCP Hospitalist
DX: M54.12 Radiculopathy, cervical region (principal); F32.A Depression, unspecified
CPT/HCPCS: 36415; 70496; 70498; 80053; 85025; 85610; 85730; 96374; 96375; 99284; A9270; J1100; J1885; Q9967

== ENCOUNTER 2024-10-23 14:01 | Outpatient (CLI) | payer OTHER, SELFPAY ==
--- NOTE | ~2024-10-23 | MR_ITS ---
EXAMINATION: MR cervical spine wo con DATE: 10/23/2024 14:43 INDICATION: Cervical radiculopathy TECHNIQUE: Magnetic resonance imaging (MRI) of the cervical spine was performed without intravenous c ontrast. Sequences included sagittal T2-weighted FSE, sagittal T2-weighted FS FSE, sagittal T1-weight ed FSE, axial MERGE and axial T2-weighted FSE. COMPARISON: None FINDINGS: 2 mm retrolisthesis C5 on C6 with mild associated kyphosis. Vertebral body heights are normal. Bone marrow signal intensity is normal. Mild disc desiccation throughout the cervical disks. Moderate dis c height loss at C5-C6 with annular fissure and disc extrusion with extruded disc material extending 2.2 cm caudally to below the level of the adjacent C6-C7 disc space.. Mild disc height loss at C4-C5 and C6-C7. Cord signal intensity is normal. Visualized cervical soft tissues are unremarkable. The fo llowing disc levels are specifically discussed: C2-C3: The disc does not extend beyond the endplate margin. There is no uncovertebral joint osteoarth ritis. There is mild bilateral facet joint osteoarthritis. There is no neural foraminal stenosis. The re is no central canal stenosis. C3-C4: The disc does not extend beyond the endplate margin. There is no uncovertebral joint osteoarth ritis. There is mild bilateral facet joint osteoarthritis. There is no neural foraminal stenosis. The re is no central canal stenosis. C4-C5: Disc is mildly bulging. There is no uncovertebral joint osteoarthritis. There is mild bilatera l facet joint osteoarthritis. There is no neural foraminal stenosis. There is mild central canal sten osis. C5-C6: Disc is bulging with annular fissure and left paracentral disc extrusion which deforms the cor d with left ventral indention and with medial to lateral widening of the cord. There is mild bilatera l uncovertebral joint osteoarthritis. There is minimal bilateral facet joint osteoarthritis. There is mild bilateral neural foraminal stenosis. There is severe central canal stenosis with central canal measuring 5 mm AP in the mid sagittal plane with effacement of the CSF signal surrounding the cord at this level. C6-C7: The extruded disc material from C5-C6 extends caudally across the central posterior region of a small disc bulge at this level. There is mild bilateral uncovertebral joint osteoarthritis. There i s minimal bilateral facet joint osteoarthritis. There is mild bilateral neural foraminal stenosis. Th ere is moderate central canal stenosis measuring 6 #18 the mid sagittal plane with indention of the v entral surface of the cord and minimal surrounding CSF signal. C7-T1: The disc does not extend beyond the endplate margin. There is no uncovertebral joint osteoarth ritis. There is mild bilateral facet joint osteoarthritis. There is no neural foraminal stenosis. The re is no central canal stenosis. IMPRESSION: 1. Mild to moderate cervical spondylosis most notable for a large disc extrusion at C5-C6 which resul ts in severe central canal stenosis at this level and which extends caudally and along with a disc bu lge at C6-C7, also contributes to moderate central canal stenosis at that level. Reviewed, dictated and finalized at location A. IMPRESSION: 1. Mild to moderate cervical spondylosis most notable for a large disc extrusio n at C5-C6 which results in severe central canal stenosis at this level and whi ch extends caudally and along with a disc bulge at C6-C7, also contributes to m oderate central canal stenosis at that level.
--- OUTSIDE RECORDS SUMMARY | 2024-10-23 14:05 | XMS_ITS | Encounter Summary ---
Author Organization [facility] Address [address] [place] [address] Care Team Providers Care Oracle Developer Name Role Phone Evelina Marcelo MD Primary Care Pro vider Reason for Visit * Reason Onset Date Comments Test Results 10/09/2024 Encounter Details Date Type Department Care Team ([facility] st Contact Info) Description 10/09/2024 Telephone [facility] Primary Care at [address] [phone] Evelina Marcelo MD [address] [place] [id number] Test Results Social History Tobacco Use Types Packs/Day Years Used Date Smoking Tobacco: Never Smokeless Tobacco: Never AUDIT-C Answer Date Recorded Q1: How often [...] points, staff should administer the PHQ-9) 0 10/09/2024 Personal Safety Answer Date Recorded Getting School Help Needed Denies 06/09 Comments No Sex and Gender Information Value Date Recorded Sex Assigned at Not on file Legal Sex Female 12:54 PM LIFE SKILLS CONSULTANT Gender Identity Not on file Sexual Orientation Not on file documented as of this encounter Miscellaneous Notes * Telephone Encounter - Evelina Marcelo MD - 10/09/2024 3:50 PM CDT Portal message sent * Telephone Encounter - Joann Maldonado - 10/09/2024 3:25 PM CDT Test Result Request Type of test: XR Chest and XR Spine Thoracic Date of test: 10/09/2024 Where was the test performed at?[facility] Did provider dictate result yet? No Additional Questions/Comments: Patient asking for results. Does message need to be routed? Yes-Action Needed documented in this encounter Plan of Treatment Not on file documented as of this encounter Visit Diagnoses Not on filedocumented in this encounter Care Teams Oracle Developer Relationship Specialty Start Date End Date Evelina Marcelo MD PCP - General Family Medicine 08/15/21 documented as of this encounter
--- OUTSIDE RECORDS SUMMARY | 2024-10-23 14:05 | XMS_ITS | Encounter Summary ---
Author Organization [facility] Healthcare Address [address] [place] [address] Care Team Providers Care Orthopedic Shoes Salesperson Name Role Phone Evelina Marcelo MD Primary Care Pro vider Encounter Details Date Type Department Care Team (Late st Contact Info) Description 10/09/2024 Results Follow-Up [facility] Primary Care at [address] [phone] Evelina Marcelo MD [address] [place] [id number] XR Chest PA Lateral 2 Views, XR Spine Thoracic 3 Vw Social History Tobacco Use Types Packs/Day Years [...] on file Legal Sex Female 12:54 PM 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
--- OUTSIDE RECORDS SUMMARY | 2024-10-23 14:05 | XMS_ITS | Clinical Summary ---
Author Organization [facility] Address [address] [place] [address] Care Team Providers Care Maintenance And Utilities Supervisor Name Role Phone None, Provider MD Primary [...] Comments Blood Pressure 109/67 05/10/2019 4:51 PM CLOTH SANDER Pulse 71 05/10/2019 4:51 PM CLOTH SANDER Temperature 36.4 C (97.5 F) 05/17/2020 1:11 PM CLOTH SANDER patient reported Respiratory Rate 16 05/10/2019 4:51 PM CLOTH SANDER Oxygen Saturation 100% 05/10/2019 4:5 1 PM CLOTH SANDER Inhaled Oxygen Concentration - - Weight 70.8 kg (156 lb) 05/17/2020 1:11 PM CLOTH SANDER patient reported Height 157.5 cm (5' 2 [...] to complete this topic Insurance Care Teams Maintenance And Utilities Supervisor Relationship Specialty Start Date End Date None, Provider, PCP - General UNKNOWN PHYSICIAN SPECIALTY 04/28/23
--- OUTSIDE RECORDS SUMMARY | 2024-10-23 14:05 | XMS_ITS | Referral Summary ---
Author Organization [facility] at the Medical Office Building Address [address] [place] [phone] Care Team Providers Care Dry Food Products Mixer Name Role Phone Evelina Marcelo MD Primary Care Pro vider Encounters Date Type Department Care Team Description 10/18/2024 Telephone [facility] Primary Care at [address] [phone] Evelina Marcelo MD Authorization/Certifi cation; Medical Question/Miscellaneou s 10/09/2024 Results Follow-Up [facility] Primary Care at [address] [phone] Evelina Marcelo MD XR Chest PA Lateral 2 Views, XR Spine Thoracic 3 Vw 10/09/2024 Telephone [facility] Primary Care at [address] [phone] Evelina Marcelo MD Test Results 10/09/2024 9:30 AM CDT - 10/09/2024 11:59 PM CDT Hospital Encounter [facility] MOB 1 DIAG IMG [address] [place] [phone] Mid back pain; Acute cough Discharge Disposition: Discharge to home or self care 10/09/2024 9:00 AM CDT Office Visit [facility] Primary Care at [address] [phone] Evelina Marcelo MD Cervical radiculopathy (Primary Dx); Mid back pain; Acute cough 10/05/2024 Nurse Triage [facility] Primary Care at [place] [address] [place] [address] Evelina Marcelo MD from Last 3 Months Allergies Active Allergy Reactions Criticality Noted Date Comments Latex Itching,Rash Medium 03/02/2019 Penicillins Anaphylaxis High 09/19/2013 Patient was very young, states she thinks it messes with her breathing. Childhood allergy; thinks it effects her breathing. Medications naproxen (NAPROSYN) 500 mg tablet Take 1 tablet (500 mg total) by mouth 2 (two) times a day as needed for pain 5 Active methylPREDNISo lone (MEDROL DOSEPACK) 4 mg Dosepack FOLLOW PACKAGE DIRECTIONS 5 Active lidocaine (LIDODERM) 5 % 5 Active cyclobenzaprin e (FLEXERIL) 10 mg tablet Take 1 tablet (10 mg total) by mouth 3 (three) times a day as needed for muscle spasms 5 Active omeprazole (PriLOSEC) 20 mg capsuleIndicat ions:Abdominal pain Take 1 capsule daily for 8 weeks. Then take 1 capsule every other day for 2 weeks then stop. 63 capsule 3 10/10/19 25 Discontinu ed(Therapy completed) Active Problems Problem Noted Date Diagnosed Date Diarrhea 06/26/2022 Overview (06/26/2022): Added automatically from request for surgery [id number] Hypersomnia 10/14/2021 Assessment & Plan (10/14/2021 11:01 AM CDT): The patient presents with nocturnal gasping episodes with palpitations and daytime hypersomnia. Have recommended proceeding with a nocturnal polysomnogram with a split night protocol if necessary and no MSLT. She will follow-up with me in 3 months. 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 Gender Identity Not on file Sexual Orientation Not on file Last Filed Vital Signs Vital Sign Reading Time Taken Comments Blood Pressure 98/64 10/09/2024 8:55 AM CDT Pulse 78 10/09/2024 8:55 AM CDT Temperature 36.4 C (97.5 F) 10/09/2024 8:55 AM CDT Respiratory Rate 14 10/09/2024 8:55 AM CDT Oxygen Saturation 98% 11/26/2022 2:34 PM CDT Inhaled Oxygen Concentration - - Weight 79.7 kg (175 lb 11.2 oz) 10/09/2024 8:55 AM CDT Height 157.5 cm (5' 2.01 ) 10/09/2024 8:55 AM CD T Body Mass Index 32.13 10/09/2024 8:55 AM CDT Plan of Treatment Not on file Procedures Procedure Name Priority Date/Time Associated Diagnosis Comments XR CHEST PA LATERAL 2 VIEWS Schedule MERCY, Read MERCY (Appt Today, Awaiting Results) 10/09/2024 10:17 AM CDT Acute cough XR SPINE THORACIC 3 VIEWS Schedule MERCY, Read MERCY (Appt Today, Awaiting Results) 10/09/2024 10:17 AM CDT Mid back pain from Last 3 Months Results * XR Spine Thoracic 3 Vw (10/09/2024 10:17 AM CDT) Anatomical Region Laterality Modality Spine N/A Computed Radiogr aphy 10/09/2024 2:45 PM CDT Narrative 10/09/2024 2:48 PM CDT EXAM DESCRIPTION: XR SPINE THORACIC 3 VIEWS; XR CHEST PA LATERAL 2 VIEWS REASON FOR STUDY: Right-sided upper back/shoulder pain radiating into the right neck in association with right arm numbness for 3 weeks. No provided chest complaints. No provided history of trauma or inciting and/or aggravating events. No provided past medical or surgical history. TECHNIQUE: 3 radiographic views acquired of the cervical spine; frontal and lateral radiographic views acquired of the chest. COMPARISON: Relevant portions of CT abdomen pelvis with contrast 06/22/2022. FINDINGS: THORACIC SPINE RADIOGRAPH: ALIGNMENT: Anatomic. VERTEBRAE: No radiographic evidence of acute fracture. Vertebral body heights maintained. Multilevel variable minimal anterior degenerative wedging. Predominantly mild spondylosis. DISCS: Multilevel variable loss of intervertebral disc height. SOFT TISSUES: No acute abnormality. CHEST RADIOGRAPH: Trachea midline. Heart normal size and contour. Hilar and mediastinal structures unremarkable. No focal consolidation. No pleural effusion. No pneumothorax. No tubes or lines in the chest. No acute osseous abnormality. IMPRESSION: 1. No radiographic evidence of acute fracture or subluxation of the thoracic spine. 2. No acute cardiopulmonary process. THIS IS AN ELECTRONICALLY VERIFIED FINAL REPORT 10/09/2024 2:48 PM - Electronically signed by Keith Cortez M.D. PRADEEP: PRADEEP Report ID: [id number] Reading Location: [id number] Procedure Note Keith Cortez MD - 10/09/2024 EXAM DESCRIPTION: XR SPINE THORACIC 3 VIEWS; XR CHEST PA LATERAL 2 VIEWS REASON FOR STUDY: Right-sided upper back/shoulder pain radiating into the right neck in association with right arm numbness for 3 weeks. Noprovided chest complaints. No provided history of trauma or inciting and/or aggravating events. No provided past medical or surgical history. TECHNIQUE: 3 radiographic views acquired of the cervical spine; frontaland lateral radiographic views acquired of the chest. COMPARISON: Relevant portions of CT abdomen pelvis with wrzthetq60/16/2023. FINDINGS: THORACIC SPINE RADIOGRAPH: ALIGNMENT: Anatomic. VERTEBRAE: No radiographic evidence of acute fracture. Vertebral bodyheights maintained. Multilevel variable minimal anterior degenerative wedging. Predominantly mild spondylosis. DISCS: Multilevel variable loss of intervertebral disc height. SOFT TISSUES: No acute abnormality. CHEST RADIOGRAPH: Trachea midline. Heart normal size and contour. Hilarand mediastinal structures unremarkable. No focal consolidation. No pleural effusion. No pneumothorax. No tubes or lines in the chest. No acuteosseous abnormality. IMPRESSION: 1. No radiographic evidence of acute fracture or subluxation of thethoracic spine. 2. No acute cardiopulmonary process. THIS IS AN ELECTRONICALLY VERIFIED FINAL REPORT 10/09/2024 2:48 PM - Electronically signed by Keith Cortez M.D. PRADEEP: PRADEEP Report ID: [id number] Reading Location: [place] [address] Evelina Marcelo MD IMG XR PROCEDURES Final Result * XR Chest PA Lateral 2 Views (10/09/2024 10:17 AM CDT) Anatomical Region Laterality Modality Body, Chest N/A Computed Radiogr aphy 10/09/2024 2:45 PM CDT Narrative 10/09/2024 2:48 PM CDT EXAM DESCRIPTION: XR SPINE THORACIC 3 VIEWS; XR CHEST PA LATERAL 2 VIEWS REASON FOR STUDY: Right-sided upper back/shoulder pain radiating into the right neck in association with right arm numbness for 3 weeks. No provided chest complaints. No provided history of trauma or inciting and/or aggravating events. No provided past medical or surgical history. TECHNIQUE: 3 radiographic views acquired of the cervical spine; frontal and lateral radiographic views acquired of the chest. COMPARISON: Relevant portions of CT abdomen pelvis with contrast 06/22/2022. FINDINGS: THORACIC SPINE RADIOGRAPH: ALIGNMENT: Anatomic. VERTEBRAE: No radiographic evidence of acute fracture. Vertebral body heights maintained. Multilevel variable minimal anterior degenerative wedging. Predominantly mild spondylosis. DISCS: Multilevel variable loss of intervertebral disc height. SOFT TISSUES: No acute abnormality. CHEST RADIOGRAPH: Trachea midline. Heart normal size and contour. Hilar and mediastinal structures unremarkable. No focal consolidation. No pleural effusion. No pneumothorax. No tubes or lines in the chest. No acute osseous abnormality. IMPRESSION: 1. No radiographic evidence of acute fracture or subluxation of the thoracic spine. 2. No acute cardiopulmonary process. THIS IS AN ELECTRONICALLY VERIFIED FINAL REPORT 10/09/2024 2:48 PM - Electronically signed by Keith Cortez M.D. PRADEEP: PRADEEP Report ID: [id number] Reading Location: [place] [address] Procedure Note Keith Crotez MD - 10/09/2024 EXAM DESCRIPTION: XR SPINE THORACIC 3 VIEWS; XR CHEST PA LATERAL 2 VIEWS REASON FOR STUDY: Right-sided upper back/shoulder pain radiating into the right neck in association with right arm numbness for 3 weeks. Noprovided chest complaints. No provided history of trauma or inciting and/or aggravating events. No provided past medical or surgical history. TECHNIQUE: 3 radiographic views acquired of the cervical spine; frontaland lateral radiographic views acquired of the chest. COMPARISON: Relevant portions of CT abdomen pelvis with /16/2023. FINDINGS: THORACIC SPINE RADIOGRAPH: ALIGNMENT: Anatomic. VERTEBRAE: No radiographic evidence of acute fracture. Vertebral bodyheights maintained. Multilevel variable minimal anterior degenerative wedging. Predominantly mild spondylosis. DISCS: Multilevel variable loss of intervertebral disc height. SOFT TISSUES: No acute abnormality. CHEST RADIOGRAPH: Trachea midline. Heart normal size and contour. Hilarand mediastinal structures unremarkable. No focal consolidation. No pleural effusion. No pneumothorax. No tubes or lines in the chest. No acuteosseous abnormality. IMPRESSION: 1. No radiographic evidence of acute fracture or subluxation of thethoracic spine. 2. No acute cardiopulmonary process. THIS IS AN ELECTRONICALLY VERIFIED FINAL REPORT 10/09/2024 2:48 PM - Electronically signed by Keith Cortez M.D. PRADEEP: PRADEEP Report ID: [id number] Reading Location: [id number] Evelina Marcelo MD IMG XR PROCEDURES Final Result from Last 3 Months Insurance [facility] Care Teams Dry Food Products Mixer Relationship Specialty Start Date End Date Evelina Marcelo MD [phone] (work) PCP - General Family Medicine 08/15/21
--- OUTSIDE RECORDS SUMMARY | 2024-10-23 14:05 | XMS_ITS | Clinical Summary ---
Author Organization [facility] Care Team Providers Care Special Class Welder Name Role Phone Unavailable Primary Care Provider [...]
--- OUTSIDE RECORDS SUMMARY | 2024-10-23 14:05 | XMS_ITS | Clinical Summary ---
Author Organization [facility] [employer] Address [address] [place] [address] Care Team Providers Care Acting Manager Name Role Phone Mckinley Braun MD Primary Care Provider + Source Comments [facility],non-owned Affiliates and Associated Physician Practices is amultiple site organization consisting of ambulatory clinics and hospital sitesin [place], [place], [place] and [place]. This disclosure is being madepursuant to the Care Everywhere program and may not contain all information available regarding this patient. 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
--- OUTSIDE RECORDS SUMMARY | 2024-10-23 14:05 | XMS_ITS | Encounter Summary ---
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
--- OUTSIDE RECORDS SUMMARY | 2024-10-23 14:05 | XMS_ITS | Encounter Summary ---
Author Organization [facility] Healthcare Address [address] [place] [address] Care Team Providers Care Heel Seat Flap Stapler Name Role Phone Evelina Marcelo MD Primary Care Pro vider Reason for Visit * Reason Onset Date Comments Authorization/Certification 10/18/2024 Medical Question/Miscellaneous 10/18/2024 Encounter Details Date Type Department Care Team (Late st Contact Info) Description 10/18/2024 Telephone [facility] Medical Group Primary Care at [address] [phone] Evelina Marcelo MD [address] [place] [address] Authorization/Certifica tion; Medical Question/Miscellaneous Social History Tobacco Use Types Packs/Day Years [...] on file 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 Per backline will fax right away. Does message need to be routed? Yes-FYI Only * Telephone Encounter - aGy Nino - 10/20/2024 11:27 AM CDT Case still pending medical review per [facility]. Tracking #[id number] * Telephone Encounter - Manuel Hernandez - 10/20/2024 11:16 AM CDT Call Back Callerâ€™s Concern: [facility] called to check status of Pre Cert. Advised per chart notes. If not received by 3 pm today appt may be cancelled. Does message need to be routed? Yes-Action Needed * Telephone Encounter - Gay Nino - 10/18/2024 1:48 PM CDT [place] authorization pending clinical review. Tracking #[id number] * Telephone Encounter - Joanie Aguilar - 10/18/2024 12:18 PM CDT Certification for Test/Procedure Type of Certification Needed: Pre-Cert for Test/Procedure Type of caller:Facility Type of test/procedure needed (CPT code if available): 64409 Reason for test/procedure (diagnosis code if available): Acute Neck Pain; Cervical radiculopathy (M54.12) Is insurance in chart accurate? Yes, [place] Facility name: [facility] Imaging Facility NPI# (if available): [id number] Facility phone#: [phone] Facility fax#: [phone] Date test/procedure is scheduled: 10/23/24 Additional Comments: Angle with [facility] called for a PA for the MRI Cervical Spine w/o contrast Does message need to be routed? Yes-Action Needed documented in this encounter Plan of Treatment Not on file documented as of this encounter Visit Diagnoses Not on filedocumented in this encounter Care Teams Heel Seat Flap Stapler Relationship Specialty Start Date End Date Evelina Marcelo MD PCP - General Family Medicine 08/15/21 documented as of this encounter
--- OUTSIDE RECORDS SUMMARY | 2024-10-23 14:05 | XMS_ITS | Clinical Summary ---
Author Organization [facility] [address] at the Medical Office Building Address [address] [place] [phone] Care Team Providers Care Local Company Truck Driver Name Role Phone Evelina Marcelo MD Primary [...] (06/26/2022): Added automatically from request for surgery [id number] Hypersomnia 10/14/2021 Assessment & Plan (10/14/2021 11:01 AM CDT): The patient presents with nocturnal gasping episodes with palpitations and daytime hypersomnia. Have recommended proceeding with a nocturnal polysomnogram with a split night protocol if necessary and no MSLT. She will follow-up with me in 3 months. Family history of colon cancer 08/22/2021 Overview (08/22/2021): Added automatically from request for surgery [id number] Encounters Date Type Department Care Team Description 10/18/2024 Telephone [facility] Primary Care at [address] [phone] Evelina Marcelo MD Authorization/Certifi cation; Medical Question/Miscellaneou s 10/09/2024 9:30 AM CDT - 10/09/2024 11:59 PM CDT Hospital Encounter [facility] MOB 1 DIAG IMG [address] [place] [address] Mid back pain; Acute cough Discharge Disposition: Discharge to home or self care 10/09/2024 9:00 AM CDT Office Visit [facility] Primary Care at [address] [phone] Evelina Marcelo MD Cervical radiculopathy (Primary Dx); Mid back pain; Acute cough 10/09/2024 Results Follow-Up [facility] Primary Care at [address] [phone] Evelina Marcelo MD XR Chest PA Lateral 2 Views, XR Spine Thoracic 3 Vw 10/09/2024 Telephone [facility] Primary Care at [address] [phone] Evelina Marcelo MD Test Results 10/05/2024 Nurse Triage [facility] Primary Care at [address] [phone] Evelina Marcelo MD from Last 3 Months Immunizations Immunization Administration Dates Next Due Influenza, [...] on file 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 Gender Identity Not on file Sexual Orientation [...] 10/09/2024 8:55 AM CDT Plan of Treatment Health Maintenance Due Date Last Done Comments Cervical Cancer Screening 1989 Hepatitis C Screening 1989 DTaP/Tdap/Td Vaccine (1 - Tdap) 2000 Varicella Vaccines (1 of 2 - 13+ 2-dose series) 2002 Hepatitis B Screening 2007 Regular Well Visit/Exam 18-64 2007 Influenza Vaccine (Season Ended) 2025 Depression Screening 10/09/2025 10/09/2024, 11/26/2022, 08/15/2021, Additional history exists HPV Vaccines Aged Out No longer eligi ble based on patient's age to complete this topic Pneumococcal vaccine <65 Aged Out No longer eligible based on patient's age to complete this topic Procedures Procedure Name Priority Date/Time Associated Diagnosis [...] Keith Cortez M.D. PRADEEP: PRADEEP Report ID: [id number] Reading Location: [place] [address] Procedure Note Keith Cortez MD - 10/09/2024 [...] Relevant portions of CT abdomen pelvis with ebfjwptu43/16/2023. FINDINGS: THORACIC SPINE RADIOGRAPH: ALIGNMENT: Anatomic. VERTEBRAE: [...] Keith Cortez M.D. PRADEEP: PRADEEP Report ID: [id number] Reading Location: [id number] Evelina Marcelo MD IM XR PROCEDURES Final Result * XR Chest [...] Keith Cortez M.D. PRADEEP: PRADEEP Report ID: [id number] Reading Location: [id number] Procedure Note Keith Cortez MD - 10/09/2024 [...] Relevant portions of CT abdomen pelvis with soumnnwa59/16/2023. FINDINGS: THORACIC SPINE RADIOGRAPH: ALIGNMENT: Anatomic. VERTEBRAE: [...] Keith Cortez M.D. PRADEEP: PRADEEP Report ID: [id number] Reading Location: [place] [address] Evelina Marcelo MD IMG XR PROCEDURES Final Result from Last 3 Months Insurance [facility] Care Teams Local Company Truck Driver Relationship Specialty Start Date End Date Evelina Marcelo MD PCP - General Family Medicine 08/15/21
== END 2024-10-23 14:02 | disposition home or self-care (01) ==
PROVIDERS: PCP Hospitalist; Visit Provider Hospitalist
DX: M43.02 Spondylolysis, cervical region (principal); M50.222 Other cervical disc displacement at C5-C6 level; M50.323 Other cervical disc degeneration at C6-C7 level; M48.02 Spinal stenosis, cervical region
CPT/HCPCS: 72141

== ENCOUNTER 2025-04-12 19:06 | Emergency (ER) | payer OTHER, SELFPAY ==
[2025-04-12 19:13] VITALS: BP 120/68; PULSE 70; RESP 18; TEMP 36.6; O2SAT 99
--- NOTE | 2025-04-12 19:16 | ED.EAR ---
HPI - Ear Problem General Chief complaint: Ear Stated complaint: LT Ear Pain Time Seen by Provider: 04/12/25 19:16 Source: patient, RN notes reviewed and old records reviewed Mode of arrival: ambulatory Limitations: no limitations History of Present Illness HPI Narrative: Patient presents concerns of an infected piercing. Reports that she got to piercings done on Wednesday, 6 days ago. Started having discomfort on Wednesday or Wednesday. Noticed on Wednesday she has had some discharge to the back of the earring. Was cleaning it with in earring apron cleaner Related Data Home Medications ?Medication ?Instructions ?Recorded ?Confirmed ?Last Taken ?Type No Home Medications 04/12/25 04/12/25 Unknown History Allergies Allergy/AdvReac Type Severity Reaction Status Date / Time Penicillins Allergy Severe ANAPHYLACTIC Verified 04/12/25 19:14 SHOCK latex AdvReac Intermediate Itching,HIV Verified 04/12/25 19:14 ES Review of Systems Review of Systems: All systems reviewed & are unremarkable except as noted in HPI and below Constitutional: Constitutional: Reports no additional constitutional complaints ENT: Reports as per HPI Musculoskeletal: Musculoskeletal: Reports no additional musculoskeletal complaints Integumentary/Breasts: Skin/Breast: Reports system reviewed and no additional complaints, except as docu [facility] Past Medical History Medical History Ovarian cyst Depression Exercise-induced asthma Surgical History Surgical History H/O tubal ligation Hx of tonsillectomy [place] teeth extracted H/O section Family History Family History Mother Carcinoma of colon Grandparent Arthritis Social History Social History Alcohol intake: current Alcohol use details: social Substance use: never Living arrangements: with family Gender identity (if verbalized by the patient): Female Comments At the time of my signature, I reviewed and agree with the nursing past medical, surgical, social, and family history. There is no relevant family history pertinent to the patient complaint. Exam Const: General: cooperative, healthy appearing, comfortable, no acute distress, well developed, alert and well nourished Nutritional Appearance: well nourished Orientation/consciousness: patient oriented x3 Limitations: no limitations HENMT: Head: normal to inspection Ears: hearing grossly normal bilaterally, TM's normal bilaterally, EAC's normal, mastoids normal and no periauricular adenopathy Outer ear/TM images:  1. New piercing 2. New piercing Other: No surrounding erythema. Scant amount of drainage noted to the lower new piercing. No surrounding cellulitic changes. Eyes: General: appearance normal, both eyes and all related structures Alignment and Position: alignment normal Neck: Neck: normal visual inspection, full ROM, no lymphadenopathy and no meningeal signs Chest: Chest palpation & inspection: normal inspection of the chest Resp: Effort & Inspection: normal respiratory effort and able to speak in complete sentences Auscultation: clear to auscultation bilaterally, no crackles, no rales, no rhonchi and no wheezes Cardio: Rate: regular rate Skin: General skin exam: normal color and no rashes or lesions noted Neuro: General: patient oriented x3, gait normal, moves all extremities and no meningeal signs Cognition (Neuro): normal cognition Speech: normal speech Gait exam (Neuro): Normal gait present Extrem: General: normal to inspection, full ROM, capillary refill normal and normal gait Psych: Appearance: grossly normal and well kempt Mental Status: mental status grossly normal Speech and movement: Normal speech and movement present and Clear speech present Affect: normal affect Attitude: cooperative Course Course Level of Care: Express Care Visit Vital Signs Vital signs: Vital Signs Temperature 98 F 04/12/25 19:13 Pulse Rate 70 04/12/25 19:13 Respiratory Rate 18 04/12/25 19:13 Blood Pressure 120/68 04/12/25 19:13 Pulse Oximetry 99 04/12/25 19:13 Oxygen Delivery Room Air 04/12/25 19:13 Temperature 98 F 04/12/25 19:13 Pulse Rate 70 04/12/25 19:13 Respiratory Rate 18 04/12/25 19:13 Blood Pressure 120/68 04/12/25 19:13 Pulse Oximetry 99 04/12/25 19:13 Oxygen Delivery Room Air 04/12/25 19:13 Reviewed Medical Decision Making MDM Narrative Medical decision making narrative: Patient sitting comfortably in exam room. Patient is nontoxic, vitals stable. Patient concern for a new piercing infection. Discussed [id number] treatment plan. No cellulitic changes noted at this time Patient is appropriate for outpatient treatment with close follow-up Discharge instructions reviewed with patient, as well as provided in writing per nursing staff. The instructions also include specific and strict return/GO TO THE ER as well as f/u information. All questions have been answered, and the patient deny any further questions with discharge and discharge plan. Some parts of this dictation were generated by voice recognition software and may contain typographical and/or grammatical inaccuracies. Medical Records Medical records reviewed: Yes I reviewed the external patient's medical records. Vital Signs Vital Signs: Vital Signs Temperature 98 F 04/12/25 19:13 Pulse Rate 70 04/12/25 19:13 Respiratory Rate 18 04/12/25 19:13 Blood Pressure 120/68 04/12/25 19:13 Pulse Oximetry 99 04/12/25 19:13 Oxygen Delivery Room Air 04/12/25 19:13 Temperature 98 F 04/12/25 19:13 Pulse Rate 70 04/12/25 19:13 Respiratory Rate 18 04/12/25 19:13 Blood Pressure 120/68 04/12/25 19:13 Pulse Oximetry 99 04/12/25 19:13 Oxygen Delivery Room Air 04/12/25 19:13 Reviewed Lab Data Lab results reviewed: Yes I reviewed the patient's lab results. Labs: Reviewed Critical Care Time Critical Care Time Critical Care Time: No Discharge Plan Discharge Clinical Impression: Pierced ear infection Patient Disposition: Home Condition: Stable Instructions: Antibiotic Form, Pierced [place] Infection (ED) Additional Instructions: Use Bactine spray twice a day. Use bacitracin ointment twice daily Take Motrin alternating with Tylenol as needed for pain You can apply ice every 2-3 hours for 15-20 minutes while awake to help reduce inflammation and help manage pain Follow-up with primary care provider For worsening symptoms go directly to the emergency room Patient Language: Ethiopian Prescriptions: No Action No Home Medications Follow-up/Referrals: Davian,Evelina Castro MD [Primary Care Provider, Unknown] - 1 Week Stand Alone Forms: Work/School Release IP Time of Disposition: 19:26
--- OUTSIDE RECORDS SUMMARY | 2025-04-12 21:18 | XMS_ITS | Clinical Summary ---
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 patient reported Respiratory Rate 16 05/10/2019 4:51 PM [employer] DRIVER Oxygen Saturation 100% 05/10/2019 4:5 1 PM [employer] DRIVER Inhaled Oxygen Concentration - - Weight 70.8 kg (156 lb) 05/17/2020 1: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 [employer]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 patient reported Height 157.5 cm (5' 2) 02/05/2020 8:58 AM CDT Body Mass Index 28.53 02/05/2020 8:58 AM CDT Plan of Treatment Health Maintenance Due Date Last Done Comments Cervical Cancer Screening Pa p Smear (Age 30 to 64) Every 3 Years 1989 Annual Physical 1992 Hepatitis C 2007 DTaP, Tdap and Td Vaccines ( 1 - Tdap) 2008 Hepatitis B Vaccines (1 of 3 - 19+ 3-dose series) 2008 HPV Vaccines (1 - 3-dose SCD M series) 2016 Cervical Cancer Screening Pa p with HPV Testing (Age 30 to 64) Every 5 Years 2019 Cervical Cancer Screening with HPV 2019 COVID-19 Vaccine (2024-2 6 season) 2025 Influenza Adult (#1) 2025 Hepatitis A Vaccines Aged Out No long er eligible based [...] to complete this topic Insurance Care Teams Director Child Development Center Relationship Specialty Start Date End Date None, Provider, PCP - General UNKNOWN PHYSICIAN SPECIALTY 04/28/23
--- OUTSIDE RECORDS SUMMARY | 2025-04-12 21:18 | XMS_ITS | Clinical Summary ---
Author Organization [facility] Address [address] [place] [address] Care Team Providers Care Fire Loss Prevention Engineer Name Role Phone Mckinley Braun MD Primary Care Provider + Source Comments [facility],non-owned Affiliates and Associated Physician Practices is amultiple site organization consisting of ambulatory clinics and hospital sitesin [place], [place], [place] and [place]. This disclosure is being madepursuant to the Care Everywhere program and may not contain all information available regarding this patient. 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 Gender Identity Not on file Sexual Orientation [...] 12:02 PM CDT Height 157.5 cm (5' 2) 11/25/2020 12:02 PM CDT Body Mass Index 30.18 11/25/2020 12:02 PM CDT Plan of Treatment Health Maintenance Due Date Last Done Comments Opioid Medication Agreement - Annual 1989 HIV SCREENING 2004 HEPATITIS C SCREENING 04/26/2007 DTAP/TDAP/TD VACCINES (1 - Tdap) 2008 HEPATITIS B VACCINE (1 of 3 - 19+ 3-dose series) 2008 HPV VACCINE (1 - 3-dose SCDM series) 2016 DEPRESSION SCREENING 06/07/2024 COVID-19 VACCINE (1 - 2023-2 5 season) 2025 INFLUENZA VACCINE (#1) 2025 ZOSTER VACCINE (1 of 2) 2039 [...] patient's age to complete this topic Insurance [facility] Advance Directives * Full Code (Latest Code Status on File) Date Activated Date Inactivated Comments 04/02/2019 3:28 PM 04/03/2019 1:17 PM Care Teams Fire Loss Prevention Engineer Relationship Specialty Start Date End Date Mckinley Braun MD PCP - General 10/31/08
--- OUTSIDE RECORDS SUMMARY | 2025-04-12 21:18 | XMS_ITS | Encounter Summary ---
Author Organization [facility] Address [facility] [address] [place] [address] Care Team Providers Care Fws Faculty Assistant Name Role Phone Juanita Braun MD Primary Care Provider [phone] None, Provider Primary Care Provider Unavaila ble Encounter Details Date Type Department Care Team (Late st Contact Info) Description 02/07/2020 [employer] Message Enc [facility] Family & Internal Medicine [address] [phone] Mychart, [facility] Provider Throat Culture Social History Tobacco Use [...] Rule Out 05/17/2020 05/17/2020 05/23/2020 3:33 PM 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
--- OUTSIDE RECORDS SUMMARY | 2025-04-12 21:18 | XMS_ITS | Clinical Summary ---
Author Organization [facility] Building Address [address] [place] [phone] Care Team Providers Care Top Spotter Name Role Phone Evelina Marcelo MD Primary Care Pro vider Allergies Active Allergy Reactions Criticality Noted Date Comments Latex Itching,Rash Medium 03/02/2019 Penicillins Anaphylaxis High 09/19/2013 Patient was very young, states she thinks it messes with her breathing. Childhood allergy; thinks it effects her breathing. Medications No known medications Active Problems Problem Noted Date Diagnosed Date Pre-op evaluation 11/24/2024 Assessment & Plan (11/24/2024 3:20 PM CDT): Preoperative examination Procedure: corpectomy Date: Surgeon: Dr. Gooden Risk of procedure: intermediate RCRI: Class I risk, 3.9% 30d risk of , GA or cardiac arrest METs: moderate Personal or family hx of problems with anesthesia: no Medical History / Risk factors: Cardiovascular disease (GA, angina, arrhythmia, HF): no Lung disease (asthma, COPD): no GI disease (liver, gall bladder): no Uro/Renal disease (CKD, nephrolithiasis): no MSK disease (neck or jaw pain/stiffness/arthritis): spondylosis in neck Neurological disease (seizures, CVA): no Endocrine disease (thyroid, DM2): no Overall assessment of risk: low pending labs. No contraindications to procedure, would be within acceptable risk. Diarrhea 06/26/2022 Overview (06/26/2022): Added automatically from request for surgery [id number] Hypersomnia 10/14/2021 Assessment & Plan (10/14/2021 11:01 AM CDT): The patient presents with nocturnal gasping episodes with palpitations and daytime hypersomnia. Have recommended proceeding with a nocturnal polysomnogram with a split night protocol if necessary and no MSLT. She will follow-up with me in 3 months. Family history of colon cancer 08/22/2021 Overview (08/22/2021): Added automatically from request for surgery [id number] Encounters Date Type Department Care Team Description 04/11/2025 Results Follow-Up [facility] Medical [facility] at [address] [place] [address] Vane Gonzalez NP Hemoglobin A1c, CBC with auto differential, Comprehensive metabolic panel, Additional followed-up results: 9 04/10/2025 10:50 AM [facility] Office Building [address] [address] Annual physical exam; Encounter for screening for other viral diseases 01/11/2025 Telephone [facility] Medical [facility] at [address] [phone] Evelina Marcelo MD from Last 3 Months Immunizations Immunization Administration Dates Next Due Influenza, Unspecified 03/21/2021(Deferred: Fay ent Refused) Surgical History Surgery Date Site/Laterality Comments SECTION 5.24.13, 12.9.14, 12.8.17 TONSILLECTOMY COLONOSCOPY WISDOM TOOTH EXTRACTION Medical History Medical History Date Comments Sleep apnea Colon polyp Migraines Family History Medical History Relation Name Comments Arthritis Maternal Grandmother Sera Colon cancer Mother Leukemia Paternal Grandmother Relation Name Status Comments Father Alive unsure Maternal Grandmother Sera Mother Alive Paternal Grandmother Social History Tobacco Use Types Packs/Day Years Used Date Smoking Tobacco: Never Smokeless Tobacco: Never Tobacco Cessation:Counseling Given: Not Answered AUDIT-C Answer Date Recorded Frequency of Alcohol Consumption Not on file 11/24/2024 Q2: How many drinks containi ng alcohol do you have on a typical day when you are drinking? Patient does not drink Frequency of Binge Drinking Not on file 11/06 PHQ-2 Answer Date Recorded PHQ-2 Total Score (If total score is 3 or more points, staff should administer the PHQ-9) 0 10/09/2024 Personal Safety Answer Date Recorded Getting School Help Needed Denies 06/09 Comments No Sex and Gender Information Value Date Recorded Sex Assigned at Not on file Legal Sex Female 12:54 PM CHAINSTITCH TUNNEL ELASTIC OPERATOR Gender Identity Not on file Sexual Orientation Not on file Last Filed Vital Signs Vital Sign Reading Time Taken Comments Blood Pressure 124/72 11/24/2024 2:43 PM CDT Pulse 90 11/24/2024 2:43 PM CDT Temperature 36.5 C (97.7 F) 11/24/2024 2:43 PM CDT Respiratory Rate 18 11/24/2024 2:43 PM CDT Oxygen Saturation 98% 11/24/2024 2:43 PM CDT Inhaled Oxygen Concentration - - Weight 79.6 kg (175 lb 8 oz) 11/24/2024 2:43 PM CDT Height 157.5 cm (5' 2) 11/24/2024 2:43 PM CDT Body Mass Index 32.1 11/24/2024 2:43 PM CDT Plan of Treatment Health Maintenance Due Date Last Done Comments Cervical Cancer Screening 1989 DTaP/Tdap/Td Vaccine (1 - Tdap) 2000 Varicella Vaccines (1 of 2 - 13+ 2-dose series) 2002 Hepatitis B Screening 2007 Regular Well Visit/Exam 18-64 2007 HPV Vaccines (1 - 3-dose SCDM series) 2016 Influenza Vaccine (#1) 2025 Depression Screening 10/09/2025 10/09/2024, 11/26/2022, 08/15/2021, Additional history exists Hepatitis C Screening Completed 04/10/2025 Pneumococcal vaccine <65 Aged Out No longer eligible based on patient's age to complete this topic Procedures Procedure Name Priority Date/Time Associated Diagnosis Comments EGFR Routine 04/10/2025 10:56 AM CHAINSTITCH TUNNEL ELASTIC OPERATOR Annual physical exam DIFFERENTIAL AUTO Routine 04/10/2025 10: 56 AM CHAINSTITCH TUNNEL ELASTIC OPERATOR Annual physical exam LIPID PANEL Routine 04/10/2025 10:56 AM CHAINSTITCH TUNNEL ELASTIC OPERATOR Annual physical exam THYROID FUNCTION CASCADE Routine 04/10/2025 10:56 AM CHAINSTITCH TUNNEL ELASTIC OPERATOR Annual physical exam COMPREHENSIVE METABOLIC PANEL Routine 04/10/2025 10:56 AM CHAINSTITCH TUNNEL ELASTIC OPERATOR Annual physical exam CBC WITH AUTO DIFFERENTIAL Routine 04/10/2025 10:56 AM CHAINSTITCH TUNNEL ELASTIC OPERATOR Annual physical exam HEMOGLOBIN A1C Routine 04/10/2025 10:56 AM CHAINSTITCH TUNNEL ELASTIC OPERATOR Annual physical exam VARICELLA ZOSTER ANTIBODY, IGG Routine 04/10/2025 10:56 AM CHAINSTITCH TUNNEL ELASTIC OPERATOR Encounter for screening for other viral diseases HEPATITIS B SURFACE ANTIBODY (IMMUNE STATUS) Routine 04/10/2025 10:56 AM CHAINSTITCH TUNNEL ELASTIC OPERATOR Encounter for screening for other viral diseases HEPATITIS B CORE ANTIBODY, TOTAL Routine 04/10/2025 10:56 AM CHAINSTITCH TUNNEL ELASTIC OPERATOR Encounter for screening for other viral diseases HEPATITIS B SURFACE ANTIGEN Routine 04/10/2025 10:56 AM CHAINSTITCH TUNNEL ELASTIC OPERATOR Encounter for screening for other viral diseases HEPATITIS C ANTIBODY Routine 04/10/2025 10:56 AM CHAINSTITCH TUNNEL ELASTIC OPERATOR Encounter for screening for other viral diseases from Last 3 Months Results * eGFR (04/10/2025 10:56 AM CHAINSTITCH TUNNEL ELASTIC OPERATOR) eGFR >90 >=60 mL/min/1. 73 m2 Comment: Interpretive Data Reference Interval Normal >/= 90 mL/min/1.73m2 Mildly decreased* 60 - 89 mL/min/1.73m2 Mildly to moderately decreased 45 - 59 mL/min/1.73m2 Moderately to severely decreased 30 - 44 mL/min/1.73m2 Severely decreased 15 - 29 mL/min/1.73m2 Kidney Failure < 15 mL/min/1.73m2 *Relative to young adult level Estimated glomerular filtration rate is determined by the 2020 CKD-EPI equation recommended by the National Kidney Foundation (A Unifying Approach to GFR Estimation: Recommendations of the NKF-ASK Task Force on Reassessing the Inclusion of Race in Diagnosing Kidney Disease, JASN 202). The CKD-EPI equation should not be used for patients with unstable renal function and has not been validated in children and those over 70. Current interpretive data was last reviewed 2021. Testing performed by: [address] [address] Blood 04/10/2025 10:5 6 AM CHAINSTITCH TUNNEL ELASTIC OPERATOR 04/10/2025 12:49 PM CHAINSTITCH TUNNEL ELASTIC OPERATOR us Evelina Marcelo MD LAB BLOOD ORDERAB LES Final Result RENAN [facility] Department [place] [address] * Differential, auto (04/10/2025 10:56 AM CHAINSTITCH TUNNEL ELASTIC OPERATOR) Neutrophil abs 2.08 1.50 - 6.50 K/cumm Comment:Testing performed by : [address] [address] Imm gran abs 0.02 0.00 - 0.10 K/cumm RENAN Comment:Testing performed by : [address] [address] Lymphocyte abs 1.77 0.80 - 3.30 K/cumm RENAN Comment:Testing performed by : [address] [address] Monocyte abs 0.40 0.20 - 0.80 K/cumm RENAN Comment:Testing performed by : [address] [address] Eosinophil abs 0.12 0.00 - 0.50 K/cumm RENAN Comment:Testing performed by : [address] [address] Basophil abs 0.05 0.00 - 0.10 K/cumm RENAN Comment:Testing performed by : [address] [address] Neutrophil pct 46.8 % [facility] Comment: Interpretive Data Percent cell count reference ranges are not reported, since discordance with absolute values may lead to misinterpretation of CBC data. Current Interpretive Data was last revised on 2017. Testing performed by: [address] [address] Imm gran pct 0.5 % [facility] Comment: Interpretive Data Percent cell count reference ranges are not reported, since discordance with absolute values may lead to misinterpretation of CBC data. Current Interpretive Data was last revised on 2017. Testing performed by: [address] [address] Lymphocyte pct 39.9 % [facility] Comment: Interpretive Data Percent cell count reference ranges are not reported, since discordance with absolute values may lead to misinterpretation of CBC data. Current Interpretive Data was last revised on 2017. Testing performed by: [address] [address] Monocyte pct 9.0 % [facility] Comment: Interpretive Data Percent cell count reference ranges are not reported, since discordance with absolute values may lead to misinterpretation of CBC data. Current Interpretive Data was last revised on 2017. Testing performed by: [address] [address] Eosinophil pct 2.7 % [facility] Comment: Interpretive Data Percent cell count reference ranges are not reported, since discordance with absolute values may lead to misinterpretation of CBC data. Current Interpretive Data was last revised on 2017. Testing performed by: [address] [address] Basophil pct 1.1 % [facility] Comment: Interpretive Data Percent cell count reference ranges are not reported, since discordance with absolute values may lead to misinterpretation of CBC data. Current Interpretive Data was last revised on 2017. Testing performed by: [address] [address] Blood 04/10/2025 10:5 6 AM CHAINSTITCH TUNNEL ELASTIC OPERATOR 04/10/2025 12:51 PM CHAINSTITCH TUNNEL ELASTIC OPERATOR Evelina Marcelo MD LAB BLOOD ORDERAB LES Final Result Performing Organization Address City/[facility] Co de Phone Number [address] [place] [address] * Thyroid Function [place] (04/10/2025 10:56 AM CHAINSTITCH TUNNEL ELASTIC OPERATOR) TSH 1.20 0.30 - 4.20 mcIUnit/mL Comment:Testing performed by : [address] [address] Blood 04/10/2025 10:5 6 AM CHAINSTITCH TUNNEL ELASTIC OPERATOR 04/10/2025 12:49 PM CHAINSTITCH TUNNEL ELASTIC OPERATOR Evelina Marcelo MD LAB BLOOD ORDERAB LES Final Result Performing Organization Address [facility] de Phone Number [address] [place] [address] * (ABNORMAL) CBC with auto differential (04/10/2025 10:56 AM CHAINSTITCH TUNNEL ELASTIC OPERATOR) WBC 4.44 3.80 - 9.90 K/cumm Comment:Testing performed by : [address] [address] Hgb 13.8 11.9 - 15.5 g/dL RENAN WHYTE Comment:Testing performed by : [address] [address] Hct 43.1 35.6 - 45.5 % RENAN WHYTE Comment:Testing performed by : [address] [address] Plt 304 150 - 400 K/cumm RENAN WHYTE Comment:Testing performed by : [address] [address] MPV 11.1 9.1 - 12.3 fL RENAN WHYTE Comment:Testing performed by : [address] [address] RBC 4.79 3.90 - 5.20 M/cumm RENAN WHYTE Comment:Testing performed by : [address], [address] MCV 90.0 81.3 - 96.4 fL RENAN Comment:Testing performed by : [address] [address] MCH 28.8 27.1 - 33.3 pg RENAN WHYTE Comment:Testing performed by : [address] [address] MCHC 32.0(L) 32.3 - 35.7 g/dL RENAN Comment:Testing performed by : [address] [address] RDW CV 12.9 11.1 - 14.9 % RENAN Comment:Testing performed by : [address], [address] RDW SD 42.5 35.7 - 48.1 fL RENAN WHYTE Comment:Testing performed by : [address] [address] NRBC abs 0.00 0.00 - 0.01 K/cumm RENAN Comment:Testing performed by : [address] [address] Blood 04/10/2025 10:5 6 AM CHAINSTITCH TUNNEL ELASTIC OPERATOR 04/10/2025 12:51 PM CHAINSTITCH TUNNEL ELASTIC OPERATOR us Evelina Marcelo MD LAB BLOOD ORDERAB LES Final Result [facility] [address] [facility] Department [place] [address] * Hepatitis C antibody Blood (04/10/2025 10:56 AM CHAINSTITCH TUNNEL ELASTIC OPERATOR) Hep C Ab Nonreactive Nonreactive Comment: Antibodies to HCV not detected. Does NOT exclude the possibility of recent exposure to HCV. Current interpretive data was last revised on 22 Interpretive Data Nonreactive: Antibodies to HCV not detected. Does NOT exclude the possibility of recent exposure to HCV. Equivocal: Equivocal for HCV antibodies. Supplemental molecular testing will be automatically performed to determine infection status in accordance with current CDC screening recommendations. Reactive: Positive for HCV antibodies. This may represent current or past HCV infection. Supplemental molecular testing will be automatically performed to determine current infection status in accordance with current CDC screening recommendations. Interpretive data was last revised on 2019. Blood 04/10/2025 10:5 6 AM CHAINSTITCH TUNNEL ELASTIC OPERATOR 04/10/2025 2:35 PM CHAINSTITCH TUNNEL ELASTIC OPERATOR Evelina Marcelo MD LAB MICROBIOLOGY - GENERAL ORDERABLES Final Result Performing Organization Address [facility] Co de Phone Number [address] [place] [address] * Hepatitis B core antibody, total Blood (04/10/2025 10:56 AM CHAINSTITCH TUNNEL ELASTIC OPERATOR) Hep B core IgG/IgM Nonreactive Nonreactive Comment:Testing performed by : [facility], [address] [facility] [place]., [address] Blood 04/10/2025 10:5 6 AM CHAINSTITCH TUNNEL ELASTIC OPERATOR 04/10/2025 3:43 PM CHAINSTITCH TUNNEL ELASTIC OPERATOR Evelina Marcelo MD LAB MICROBIOLOGY - GENERAL ORDERABLES Final Result Performing Organization Address [facility] de Phone Number [address] [address] * Hepatitis B surface antibody (immune status) Blood (04/10/2025 10:56 AM CHAINSTITCH TUNNEL ELASTIC OPERATOR) HBsAb (immune status) Reactive Comment: Interpretive Data Nonreactive: This result is consistent with a lack of immunity to Hepatitis B Virus when used in the setting of routine screening. Equivocal: The immune status of the individual should be further assessed, if appropriate, after consideration of clinical status, risk factors, and additional diagnostic information. Reactive: This result is consistent with immunity to Hepatitis B Virus when used in the setting of routine screening. Current interpretive data was last revised on 19. HBsAb (immune status) index 69.0 mIUnits/m L RENAN WHYTE Blood 04/10/2025 10:5 6 AM CHAINSTITCH TUNNEL ELASTIC OPERATOR 04/10/2025 2:35 PM CHAINSTITCH TUNNEL ELASTIC OPERATOR Evelina Marcelo MD LAB MICROBIOLOGY - GENERAL ORDERABLES Final Result Performing Organization Address City/[facility]/ZIP Co de Phone Number RENAN [address] [place] [address] * Hepatitis B Surface Antigen Blood (04/10/2025 10:56 AM CHAINSTITCH TUNNEL ELASTIC OPERATOR) [facility] [address] HepBsAg Nonreactive Nonreactive Blood 04/10/2025 10:5 6 AM CHAINSTITCH TUNNEL ELASTIC OPERATOR 04/10/2025 2:35 PM CHAINSTITCH TUNNEL ELASTIC OPERATOR Evelina Marcelo MD LAB MICROBIOLOGY - GENERAL ORDERABLES Final Result Performing Organization Address [facility] de Phone Number RENAN [address] [address] * (ABNORMAL) Varicella Zoster IgG antibody Blood (04/10/2025 10:56 AM CHAINSTITCH TUNNEL ELASTIC OPERATOR) [facility] [address] VZV IgG Nonreacti ve(A) Reactive Comment: Non-reactive: No detectable antibody to Varicella-zoster virus. Such individuals are presumed to be uninfected and to be susceptible to primary infection. Testing performed by: [facility], [address] [facility] [place]., [address] Blood 04/10/2025 10:5 6 AM CHAINSTITCH TUNNEL ELASTIC OPERATOR 04/10/2025 3:43 PM CHAINSTITCH TUNNEL ELASTIC OPERATOR Evelina Marcelo MD LAB MICROBIOLOGY - GENERAL ORDERABLES Final Result Performing Organization Address [facility] Co de Phone Number RENAN [address] [place] [address] * Hemoglobin A1c (04/10/2025 10:56 AM CHAINSTITCH TUNNEL ELASTIC OPERATOR) [facility] [address] Hgb A1C 5.1 4.0 - 5.6 % Comment:Testing performed by : [facility], [address] [place] [address]., [address] Estimated Average Glucose 100 mg/dL RENAN Comment: The ADA recommends reporting an estimated Average Glucose (eAG) with all Hemoglobin A1c results using the equation derived from a study of 507 normal and diabetic adults. Minority populations were underrepresented and children were not included. (Diabetes Care 31:6586-3564, 2008). The eAG is not equivalent to a fasting glucose. Testing performed by: [facility], [address] [place] [address]., [address] Blood 04/10/2025 10:5 6 AM CHAINSTITCH TUNNEL ELASTIC OPERATOR 04/10/2025 12:52 PM CHAINSTITCH TUNNEL ELASTIC OPERATOR us Evelina Marcelo MD LAB BLOOD ORDERAB LES Final Result RENAN [address] [facility] Department [place] [address] * (ABNORMAL) Lipid panel (04/10/2025 10:56 AM CHAINSTITCH TUNNEL ELASTIC OPERATOR) Cholesterol 221(H) 30 - 199 mg/dL Comment: Interpretive Data Ages < or = 19 years Acceptable: <170 mg/dL Borderline high: 170-199 mg/dL High: >or= 200 mg/dL Ages > or = 20 years Desirable: <200 mg/dL Borderline high: 200-239 mg/dL High: >or= 240 mg/dL Literature References: 1. Expert Panel on Integrated Guidelines for Cardiovascular Health and Risk Reduction in Children and Adolescents. Pediatrics 2011;128:S213 2. NCEP Expert Panel. Circulation 2004;110:227 Current Interpretive Data was last revised on 2018. Testing performed by: [facility], [address] [place] [address]., [address] Triglycerides 52 <=149 mg/dL RENAN WHYTE Comment: Interpretive Data Ages < or = 9 years Acceptable: <75 mg/dL Borderline high: 75-99 mg/dL High: >or= 100 mg/dL Ages 10 to 20 years Acceptable: <90 mg/dL Borderline high: 90-129 mg/dL High: >or= 130 mg/dL Ages > or = 20 years Desirable: <150 mg/dL Borderline high: 150-199 mg/dL High: 200-499 mg/dL Very high: >or= 499 mg/dL Literature References: 1. Expert Panel on Integrated Guidelines for Cardiovascular Health and Risk Reduction in Children and Adolescents. Pediatrics 2011;128:S213 2. NCEP Expert Panel. Circulation 2004;110:227 Current Interpretive Data was last revised on 2018. Testing performed by: [address] [address] HDL 62 >=40 mg/dL RENAN Comment: Interpretive Data Ages < or = 19 years Acceptable: >45 mg/dL Borderline low: 40-45 mg/dL Low: <40 mg/dL Ages > or = 20 years Desirable: >or= 60 mg/dL Low: <40 mg/dL Literature References: 1. Expert Panel on Integrated Guidelines for Cardiovascular Health and Risk Reduction in Children and Adolescents. Pediatrics 2011;128:S213 2. NCEP Expert Panel. Circulation 2004;110:227 Current Interpretive Data was last revised on 2018. Testing performed by: [address] [address] LDL, calculated 150(H) <=129 mg/dL RENAN Comment: Interpretive Data Ages < or = 19 years Acceptable: <110 mg/dL Borderline high: 110-129 mg/dL High: >or= 130 mg/dL Ages > or = 20 years Optimal: <100 mg/dL Near optimal: 100-129 mg/dL Borderline high: 130-159 mg/dL High: >160 mg/dL Calculated using the Nathan LDL-C estimating equation. This equation was implemented on 2024. Prior to this date LDL-C was estimated using the Friedewald equation. Literature References: 1. Expert Panel on Integrated Guidelines for Cardiovascular Health and Risk Reduction in Children and Adolescents. Pediatrics 2011;128:S213 2. NCEP Expert Panel. Circulation 2004;110:227 3. Nathan Adame et al. CHANDANA Cardiol. 2020 October 05;5(5):540-548. doi: 10.1001/jamacardio.2020.0013 Current Interpretive Data was last revised on 2024. Testing performed by: [address] [address] Non-HDL Cholesterol 159 mg/dL RENAN Comment: Interpretive Data Ages < or = 19 years Acceptable: <120 mg/dL Borderline high: 120-144 mg/dL High: >145 mg/dL Ages > or = 20 years When triglycerides are >200 mg/dL, Non-HDL cholesterol is a secondary target of therapy with treatment goals that are 30 mg/dL greater than the LDL cholesterol target. Literature References: 1. Expert Panel on Integrated Guidelines for Cardiovascular Health and Risk Reduction in Children and Adolescents. Pediatrics 2011;128:S213 2. NCEP Expert Panel. Circulation 2004;110:227 Current Interpretive Data was last revised on 2018. Testing performed by: [address] [address] Chol/HDL ratio 4 RENAN Comment:Testing performed by : [address] [address] Blood 04/10/2025 10:5 6 AM CHAINSTITCH TUNNEL ELASTIC OPERATOR 04/10/2025 12:49 PM CHAINSTITCH TUNNEL ELASTIC OPERATOR us Evelina Marcelo MD LAB BLOOD ORDERAB LES Final Result RENAN [address] [facility] Department [place] [address] * Comprehensive metabolic panel (04/10/2025 10:56 AM CHAINSTITCH TUNNEL ELASTIC OPERATOR) Sodium 140 135 - 145 mmol/L Comment:Testing performed by : [address] [address] Potassium, pl 4.2 3.3 - 4.9 mmol/L RENAN Comment:Testing performed by : [address] [address] Chloride 103 97 - 110 mmol/L RENAN Comment:Testing performed by : [address] [address] CO2 26 22 - 32 mmol/L RENAN Comment:Testing performed by : [address] [address] Anion gap 11 2 - 15 mmol/L RENAN Comment:Testing performed by : [address] [address] BUN 16 6 - 25 mg/dL RENAN Comment:Testing performed by : [address] [address] Creatinine 0.80 0.60 - 1.10 mg/dL RENAN Comment:Testing performed by : [address] [address] Glucose 82 70 - 199 mg/dL RENAN Comment: Interpretive Data Fasting glucose >/= 126 mg/dl is diagnostic for diabetes. Fasting is defined as no caloric intake for at least 8 hours. Fasting glucose between 100 mg/dl to 125 mg/dl is diagnostic of prediabetes. In a patient with classic symptoms of hyperglycemia or hyperglycemic crisis, a random glucose >/= 200 mg/dl is diagnostic for diabetes. In the absence of unequivocal hyperglycemia, results should be confirmed by repeat testing. The classification and Diagnosis of Diabetes Diabetes Care 2021; 46: S19-S40. Current interpretive data was last revised 2022. Testing performed by: [address] [address] Calcium 9.3 8.5 - 10.3 mg/dL RENAN Comment:Testing performed by : [address] [address] Bilirubin, total 0.4 0.1 - 1.2 mg/dL [facility] Comment:Testing performed by : [address] [address] Protein, pl 7.2 6.5 - 8.5 g/dL [facility] Comment:Testing performed by : [address] [address] Albumin 4.5 3.5 - 5.0 g/dL [facility] Comment:Testing performed by : [address] [address] Alk phos 70 40 - 130 Units/L RENAN Comment:Testing performed by : [address] [address] ALT 12 7 - 45 Units/L RENAN Comment:Testing performed by : [address] [address] AST 14 10 - 45 Units/L RENAN Comment:Testing performed by : [address] [address] Blood 04/10/2025 10:5 6 AM CHAINSTITCH TUNNEL ELASTIC OPERATOR 04/10/2025 12:49 PM CHAINSTITCH TUNNEL ELASTIC OPERATOR us Evelina Marcelo MD LAB BLOOD ORDERAB LES Final Result Performing Organization Address City/State/[facility] Co de Phone Number [facility] [phone] [facility] Department [place] [address] from Last 3 Months Insurance [facility] Care Teams Top Spotter Relationship Specialty Start Date End Date Evelina Marcelo MD PCP - General Family Medicine 08/15/21
--- OUTSIDE RECORDS SUMMARY | 2025-04-12 21:18 | XMS_ITS | Clinical Summary ---
Author Organization [facility] Care Team Providers Care Energy Technician Name Role Phone Unavailable Primary Care Provider [...] 19+ 3-dose series) 2008 Pap Smear 2010 Human Papillomavirus (HPV) Immunization (1 - 3-dose SCDM series) 2016 Cervical Cancer Screening (CCS) 2019 HPV/Cotest 2019 Influenza Immunization (#1) 2025 SARS-COV-2 Immunization ( season) 2025 Respiratory Syncytial Virus (RSV) Immunization (Adult) (1 [...]
--- OUTSIDE RECORDS SUMMARY | 2025-04-12 21:18 | XMS_ITS | Encounter Summary ---
Author Organization [facility] Address [address] [place] [address] Care Team Providers Care Rn Embedded Name Role Phone Evelina Marcelo MD Primary Care Pro vider Encounter Details Date Type Department Care Team (Latest Contact Info) Description 04/11/2025 Results Follow-Up [facility] Primary Care at [place] [address] [phone] Vane Gonzalez, POLO COACH [address] [address] Hemoglobin A1c, CBC with auto differential, Comprehensive metabolic panel, Additional followed-up results: 9 Social History Tobacco Use Types Packs/Day Years Used Date Smoking Tobacco: Never Smokeless Tobacco: Never AUDIT-C Answer Date Recorded Frequency of Alcohol [...] on file 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
== END 2025-04-12 19:29 | disposition home or self-care (01) ==
PROVIDERS: Emergency Provider Nurse Practitioner; PCP Hospitalist
DX: L08.89 Other specified local infections of the skin and subcutaneous tissue (principal)
CPT/HCPCS: 99211; G0463

== ENCOUNTER 2025-05-01 11:58 | Emergency (ER) | payer OTHER, SELFPAY ==
[2025-05-01 12:13] VITALS: BP 130/67; PULSE 82; RESP 18; TEMP 37.2; O2SAT 98
[2025-05-01 12:25] LABS: EDSTREPNEGPOS1 Negative (Negative)
--- NOTE | 2025-05-01 12:43 | ED_ITS ---
HPI - URI/Sore Throat General Chief Complaint: Upper Respiratory Infection Stated Complaint: Sore throat Time Seen by Provider: 05/01/25 12:30 Source: patient and RN notes reviewed Mode of arrival: ambulatory Limitations: no limitations History of Present Illness HPI Narrative: 35-year-old female presents to the [facility] complaining of sore throat that started this morning. Patient also reports fevers and body aches. Patient denies any other upper respiratory symptoms, cough, nausea, vomiting, diarrhea, chills, sweats my chest pain, difficulty breathing, or any other symptoms. Patient took Motrin to help with the fever. Patient reports that 2 of her children currently being treated for strep throat another child being treated for pneumonia. Patient denies any significant past medical history. Related Data Allergies Allergy/AdvReac Type Severity Reaction Status Date / Time Penicillins Allergy Severe ANAPHYLACTIC Verified 05/01/25 12:13 SHOCK latex Allergy Intermediate Itching,HIV Verified 05/01/25 12:13 ES Review of Systems Review of Systems: CONSTITUTIONAL: Denies chills, or sweats. Positive for fevers and body aches. EYES: Denies visual changes, redness, or discharge. ENT: Denies rhinorrhea, congestion, or otalgia. Positive for sore throat. CARDIOVASCULAR: Denies chest pain, palpitations, or edema. RESPIRATORY: Denies cough or dyspnea. GASTROINTESTINAL: Denies abdominal pain, nausea, vomiting, or diarrhea. GENITOURINARY: Denies dysuria or hematuria. SKIN: Denies rash or itching. MUSCULOSKELETAL: Denies back pain, joint pain, or myalgia. NEUROLOGIC: Denies headache, numbness, or weakness. PSYCHIATRIC: Denies anxiety or depression. All other systems reviewed are negative, except as documented in HPI. [facility] Past Medical History Medical History Ovarian cyst Depression Exercise-induced asthma Surgical History Surgical History H/O tubal ligation Hx of tonsillectomy [place] teeth extracted H/O section Family History Family History Mother Carcinoma of colon Grandparent Arthritis Social History Social History Smoking status: Never smoker Alcohol intake: current Alcohol use details: social Substance use: never Living arrangements: with family Gender identity (if verbalized by the patient): Female Comments At the time of my signature, I reviewed and agree with the nursing past medical, surgical, social, and family history. There is no relevant family history pertinent to the patient complaint. Exam Narrative: GENERAL: This is a well-nourished, well-developed adult, in no apparent distress . They are non ill-appearing, nontoxic appearing. HEAD: normocephalic, atraumatic. EYES: Sclera clear/white. Conjunctiva normal. Vision is grossly intact. Extraocular movements intact EARS: External ears normal, auditory canals clear and without drainage, TMs normal without perforation. Hearing grossly intact. NOSE: External nose normal with no obvious nasal discharge, nasal turbinates without redness, no rhinorrhea. THROAT: Mucous membranes moist, posterior pharynx erythematous red and patchy. Tonsils 2+ erythematous. Uvula midline. NECK: Neck supple, tender cervical lymphadenopathy, no masses or thyromegaly. CARDIOVASCULAR: Regular rate and rhythm without murmurs, gallops, or rubs. RESPIRATORY: Clear to auscultation. Breath sounds equal bilaterally. No wheezes, rales, or rhonchi. SKIN: warm, Dry, intact with no suspicious lesions or rash, good texture and turgor. NEURO: awake, alert, and oriented to person, place and time. There were no obvious focal neurologic abnormalities. EXTREMITIES: No joint tenderness, effusion, or edema noted. BACK: Nontender without deformity. No CVA tenderness. Course Course Emergency Course: Portions of this record may have been created with voice recognition software Level of Care: Express Care Visit Vital Signs Vital signs: Vital Signs Temperature 98.9 F 05/01/25 12:13 Pulse Rate 82 05/01/25 12:13 Respiratory Rate 18 05/01/25 12:13 Blood Pressure 130/67 05/01/25 12:13 Pulse Oximetry 98 05/01/25 12:13 Oxygen Delivery Room Air 05/01/25 12:13 Temperature 98.9 F 05/01/25 12:13 Pulse Rate 82 05/01/25 12:13 Respiratory Rate 18 05/01/25 12:13 Blood Pressure 130/67 05/01/25 12:13 Pulse Oximetry 98 05/01/25 12:13 Oxygen Delivery Room Air 05/01/25 12:13 Reviewed MDM - URI/Sore Throat MDM Narrative Medical decision making narrative: Rapid strep is negative. A throat culture is pending. Centor score of 4. There is clinical suspicion for strep pharyngitis, through which showed decision making with patient discussed waiting antibiotic therapy prior to culture results vertigo item present delete treat for strep pharyngitis given clinical findings. Given patient's recent exposure would like to go ahead and start antibiotic therapy. Patient reports anaphylaxis history to penicillins, she is unsure about cephalosporins. Will treat her with azithromycin. Discussed physical exam findings. Advised supportive measures and signs/symptoms to go to the ER. Pt is appropriate for outpt treatment and f/u. Differential Diagnosis Differential diagnosis: Likely upper respiratory infection, viral infection and pharyngitis Lab Data Labs: Lab Results 05/01/25 Range/Units 12:22 POC Grp A Strep Screen Negative (Negative) Critical Care Time Critical Care Time Critical Care Time: No Discharge Plan Discharge Clinical Impression: Pharyngitis Qualifiers: Pharyngitis/tonsillitis etiology: unspecified etiology Qualified Code(s): J02.9 - Acute pharyngitis, unspecified Patient Disposition: Home Condition: Stable Instructions: Antibiotic Form, Pharyngitis (ED) Additional Instructions: A throat culture be sent off he will be contacted if it is positive for strep. ?Please take the azithromycin as prescribed until gone. ?You will be contagious for 24 hours after starting the medication. ?After 24 hours on antibiotics throw tooth brush away and start using a new one. Wash your sheets and cup/water bottle that is used daily. Do not share drinks. Take Tylenol or Ibuprofen for pain or fever, if able. ?Rest and stay hydrated. ?Follow up with your PCP in 3 days if symptoms are not improving. ?Go to the ER immediately if you develop worsening symptoms such as shortness of breath, difficulty swallowing. ? Patient Language: Azeri Prescriptions: New azithromycin 250 mg tablet See Rx Instructions .ROUTE .COMPLEX Qty: 6 0RF Rx Instructions: For 250 mg dose pack: take 500 mg today (day 1), then 250 mg for 4 days (days 2-5) Follow-up/Referrals: Davian,Evelina Castro MD [Primary Care Provider, Unknown] Stand Alone Forms: Work/School Release IP Time of Disposition: 12:45
--- OUTSIDE RECORDS SUMMARY | 2025-05-01 13:36 | XMS_ITS | Encounter Summary ---
Author Organization [facility] Address [facility] [place] [address] Care Team Providers Care Corporate Pilot Name Role Phone Juanita Braun MD Primary Care Provider None, Provider Primary Care Provider Unavaila ble Encounter Details Date Type Department Care Team (Late st Contact Info) Description 02/07/2020 [employer] Message Enc [facility] Family & Internal Medicine [address] [phone] Mychart, [facility] Provider Throat Culture Social History Tobacco Use [...] Rule Out 05/17/2020 05/17/2020 05/23/2020 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
--- OUTSIDE RECORDS SUMMARY | 2025-05-01 13:36 | XMS_ITS | Encounter Summary ---
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
--- OUTSIDE RECORDS SUMMARY | 2025-05-01 13:36 | XMS_ITS | Clinical Summary ---
Author Organization [facility] at the Medical Office Building Address [address] [place] [id number] Care Team Providers Care Grain Oilseed Or Pasture Farm Manager Name Role Phone Evelina Marcelo MD Primary Care Pro vider Allergies Active Allergy Reactions Criticality Noted Date Comments Latex Itching,Rash Medium 03/02/2019 Penicillins Anaphylaxis High 09/19/2013 Patient was very young, states she thinks it messes with her breathing. Childhood allergy; thinks it effects her breathing. Medications magnesium oxide (MAG-OX) 400 mg (241.3 mg elemental magnesium) tabletIndication s:hypomagnesemia Take 1 tablet (400 mg total) by mouth daily 30 tablet 11 04/27/2025 Active semaglutide (WEGOVY) 0.25 mg/0.5 mL auto-injectorInd ications:Class 1 obesity due to excess calories with serious comorbidity and body mass index (BMI) of 34.0 to 34.9 in adult Inject 0.25 mg under the skin every 7 days 2 mL 04/27/2025 Active semaglutide (Wegovy) 0.5 mg/0.5 mL auto-injectorInd ications:Class 1 obesity due to excess calories with serious comorbidity and body mass index (BMI) of 34.0 to 34.9 in adult Inject 0.5 mg under the skin every 7 days 2 mL 05/25/2025 Active Active Problems Problem Noted Date Diagnosed Date Annual physical exam 04/27/2025 Assessment & Plan (04/27/2025 3:26 PM MASTER CONTROL ENGINEER): Reviewed PMH & FH Reviewed medications and supplements HCM: orders placed as needed Advise Tdap and varicella Pure hypercholesterolemia 04/27/2025 Assessment & Plan (04/27/2025 3:26 PM MASTER CONTROL ENGINEER): Lab Results Component Value Date LDLCALC 150 (H) 04/10/2025 Controlled <190, statin not indicated given age TIMMY (obstructive sleep apnea) 04/27/2025 Pre-op evaluation 11/24/2024 Assessment & Plan (11/24/2024 3:20 PM CDT): Preoperative examination Procedure: corpectomy Date: TBD Surgeon: Dr. Gooden Risk of procedure: intermediate RCRI: Class I risk, 3.9% 30d risk of , AL or cardiac arrest METs: moderate Personal or family hx of problems with anesthesia: no Medical History / Risk factors: Cardiovascular disease (AL, angina, arrhythmia, HF): no Lung disease (asthma, [...] (06/26/2022): Added automatically from request for surgery [id number] Hypersomnia 10/14/2021 Assessment & Plan (10/14/2021 11:01 AM CDT): The patient presents with nocturnal gasping episodes with palpitations and daytime hypersomnia. Have recommended proceeding with a nocturnal polysomnogram with a split night protocol if necessary and no MSLT. She will follow-up with me in 3 months. Family history of colon cancer 08/22/2021 Overview (08/22/2021): Added automatically from request for surgery [id number] Assessment & Plan (04/27/2025 3:26 PM MASTER CONTROL ENGINEER): Repeat colonoscopy Jun 2027 Encounters Date Type Department Care Team Description 04/27/2025 3:00 PM MASTER CONTROL ENGINEER Office Visit [facility] Medical [facility] Primary Care at [address] [phone] Evelina Marcelo MD Annual physical exam (Primary Dx); Family history of colon cancer; Pure hypercholesterolemia; TIMMY (obstructive sleep apnea); PAC (premature atrial contraction); Class 1 obesity due to excess calories with serious comorbidity and body mass index (BMI) of 34.0 to 34.9 in adult 04/11/2025 Results Follow-Up [facility] at [address] [phone] Vane Gonzalez NP Hemoglobin A1c, CBC with auto differential, Comprehensive metabolic panel, Additional followed-up results: 9 04/10/2025 10:50 AM MASTER CONTROL ENGINEER Lab [facility] Office Building [address] [place] [id number] Annual physical exam; Encounter for screening for other viral diseases from Last 3 Months Immunizations Immunization Administration Dates Next Due Influenza, Unspecified 04/27/2025(Deferr ed: Patient Refused),03/21/2021(Deferred: Patient Refused) Surgical History Surgery Date Site/Laterality Comments [...] Tobacco: Never Tobacco Cessation:Counseling Given: Not Answered Alcohol Use Standard Drinks/Week Comments Never 0 (1 standard drink = 0.6 oz pur e alcohol) PHQ-2 Answer Date Recorded PHQ-2 Total Score (If total score is 3 or more points, staff should administer the PHQ-9) 0 04/27/2025 AUDIT-C Answer Date Recorded Q1: How often do you have a drink containing alcohol? Never 04/27/2025 Q2: How many drinks containi ng alcohol do you have on a typical day when you are drinking? Patient does not drink Q3: How often do you have si x or more drinks on one occasion? Never 04/27/2025 Personal Safety Answer Date Recorded Getting School Help Needed Denies 06/09 Comments No Sex and Gender Information Value Date Recorded Sex Assigned at Not on file Legal Sex Female 12:54 PM MASTER CONTROL ENGINEER Gender Identity Not on file Sexual Orientation Not on file Last Filed Vital Signs Vital Sign Reading Time Taken Comments Blood Pressure 116/70 04/27/2025 3:16 PM MASTER CONTROL ENGINEER Pulse 87 04/27/2025 3:16 PM MASTER CONTROL ENGINEER Temperature 36.6 C (97.9 F) 04/27/2025 3:16 PM MASTER CONTROL ENGINEER Respiratory Rate 18 11/24/2024 2:43 PM CDT Oxygen Saturation 99% 04/27/2025 3:16 PM MASTER CONTROL ENGINEER Inhaled Oxygen Concentration - - Weight 85 kg (187 lb 4.8 oz) 04/27/2025 3:16 PM MASTER CONTROL ENGINEER Height 157.5 cm (5' 2) 04/27/2025 3:16 PM MASTER CONTROL ENGINEER Body Mass Index 34.26 04/27/2025 3:16 PM MASTER CONTROL ENGINEER Plan of Treatment Health Maintenance Due Date Last Done Comments Cervical Cancer Screening 1989 DTaP/Tdap/Td Vaccine (1 - Tdap) 2000 Varicella Vaccines (1 of 2 - 13+ 2-dose series) 2002 HPV Vaccines (1 - 3-dose SCDM series) 2016 Influenza Vaccine (#1) 2025 Postp oned from 02/05/2025 (Patient declined, but will receive in the future) Depression Screening 04/27/2026 04/27/2025, 10/09/2024, 11/26/2022, Additional history exists Regular Well Visit/Exam 18-64 04/27/2026 04/27/2025 Hepatitis B Screening Completed 04/10/2025 Hepatitis C Screening Completed 04/10/2025 Pneumococcal vaccine <65 Aged Out No longer eligible based on patient's age to complete this topic Procedures Procedure Name Priority Date/Time Associated Diagnosis Comments ELECTROCARDIOGRAM REPORT Routine 025 3:55 PM MASTER CONTROL ENGINEER PAC (premature atrial contraction) EGFR Routine 04/10/2025 10:56 AM MASTER CONTROL ENGINEER Annual physical exam DIFFERENTIAL AUTO Routine 04/10/2025 10: 56 AM MASTER CONTROL ENGINEER Annual physical exam LIPID PANEL Routine 04/10/2025 10:56 AM MASTER CONTROL ENGINEER Annual physical exam THYROID FUNCTION CASCADE Routine 025 10:56 AM MASTER CONTROL ENGINEER Annual physical exam COMPREHENSIVE METABOLIC PANEL Routine 04/10/2025 10:56 AM MASTER CONTROL ENGINEER Annual physical exam CBC WITH AUTO DIFFERENTIAL Routine 04/10/2025 10:56 AM MASTER CONTROL ENGINEER Annual physical exam HEMOGLOBIN A1C Routine 04/10/2025 10:56 AM MASTER CONTROL ENGINEER Annual physical exam VARICELLA ZOSTER ANTIBODY, IGG Routine 04/10/2025 10:56 AM MASTER CONTROL ENGINEER Encounter for screening for other viral diseases HEPATITIS B SURFACE ANTIBODY (IMMUNE STATUS) Routine 04/10/2025 10:56 AM MASTER CONTROL ENGINEER Encounter for screening for other viral diseases HEPATITIS B CORE ANTIBODY, TOTAL Routine 04/10/2025 10:56 AM MASTER CONTROL ENGINEER Encounter for screening for other viral diseases HEPATITIS B SURFACE ANTIGEN Routine 04/10/2025 10:56 AM MASTER CONTROL ENGINEER Encounter for screening for other viral diseases HEPATITIS C ANTIBODY Routine 04/10/2025 10:56 AM MASTER CONTROL ENGINEER Encounter for screening for other viral diseases from Last 3 Months Results * Electrocardiogram Report (04/27/2025 3:55 PM MASTER CONTROL ENGINEER) us Evelina Marcelo MD ECG ORDERABLES F inal Result * eGFR (04/10/2025 10:56 AM MASTER CONTROL ENGINEER) eGFR >90 >=60 mL/min/1. 73 m2 Comment: [...] of Race in Diagnosing Kidney Disease, JASN 2020). The CKD-EPI equation should not be used for patients with unstable renal function and has not been validated in children and those over 70. Current interpretive data was last reviewed 2021. Testing performed by: [address] [address] Blood 04/10/2025 10:5 6 AM MASTER CONTROL ENGINEER 04/10/2025 12:49 PM MASTER CONTROL ENGINEER us Evelina Marcelo MD LAB BLOOD ORDERAB LES Final Result RENAN [address] [facility] Department [place] [address] * Differential, auto (04/10/2025 10:56 AM MASTER CONTROL ENGINEER) Neutrophil abs 2.08 1.50 - 6.50 K/cumm Comment:Testing performed by : [address] [address] Imm gran abs 0.02 0.00 - 0.10 K/cumm RENAN Comment:Testing performed by : [address] [address] Lymphocyte abs 1.77 0.80 - 3.30 K/cumm RENAN Comment:Testing performed by : [address] [address] Monocyte abs 0.40 0.20 - 0.80 K/cumm RENAN Comment:Testing performed by : [address] [address] Eosinophil abs 0.12 0.00 - 0.50 K/cumm [facility]:Testing performed by : [address] [address] Basophil abs 0.05 0.00 - 0.10 K/cumm RENAN Comment:Testing performed by : [address] [address] Neutrophil pct 46.8 % [facility] Comment: Interpretive Data Percent cell count reference ranges are not reported, since discordance with absolute values may lead to misinterpretation of CBC data. Current Interpretive Data was last revised on 2017. Testing performed by: [address] [address] Imm gran pct 0.5 % [facility] Comment: Interpretive Data Percent cell count reference ranges are not reported, since discordance with absolute values may lead to misinterpretation of CBC data. Current Interpretive Data was last revised on 2017. Testing performed by: [address] [address] Lymphocyte pct 39.9 % [facility] Comment: Interpretive Data Percent cell count reference ranges are not reported, since discordance with absolute values may lead to misinterpretation of CBC data. Current Interpretive Data was last revised on 2017. Testing performed by: [address] [address] Monocyte pct 9.0 % [facility] Comment: Interpretive Data Percent cell count reference ranges are not reported, since discordance with absolute values may lead to misinterpretation of CBC data. Current Interpretive Data was last revised on 2017. Testing performed by: [address] [address] Eosinophil pct 2.7 % [facility] Comment: Interpretive Data Percent cell count reference ranges are not reported, since discordance with absolute values may lead to misinterpretation of CBC data. Current Interpretive Data was last revised on 2017. Testing performed by: [address] [address] Basophil pct 1.1 % [facility] Comment: Interpretive Data Percent cell count reference ranges are not reported, since discordance with absolute values may lead to misinterpretation of CBC data. Current Interpretive Data was last revised on 2017. Testing performed by: [address] [address] Blood 04/10/2025 10:5 6 AM MASTER CONTROL ENGINEER 04/10/2025 12:51 PM MASTER CONTROL ENGINEER Evelina Marcelo MD LAB BLOOD ORDERAB LES Final Result Performing Organization Address [facility] Co de Phone Number [address] [place] [address] * Thyroid Function [place] (04/10/2025 10:56 AM MASTER CONTROL ENGINEER) [facility] TSH 1.20 0.30 - 4.20 mcIUnit/mL Comment:Testing performed by : [address] [address] Blood 04/10/2025 10:5 6 AM MASTER CONTROL ENGINEER 04/10/2025 12:49 PM MASTER CONTROL ENGINEER Evelina Marcelo MD LAB BLOOD ORDERAB LES Final Result Performing Organization Address [facility] de Phone Number [address] [address] * (ABNORMAL) CBC with auto differential (04/10/2025 10:56 AM MASTER CONTROL ENGINEER) [facility] WBC 4.44 3.80 - 9.90 K/cumm Comment:Testing performed by : [address] [address] Hgb 13.8 11.9 - 15.5 g/dL RENAN WHYTE Comment:Testing performed by : [address] [address] Hct 43.1 35.6 - 45.5 % RENAN WHYTE Comment:Testing performed by : [address] [address] Plt 304 150 - 400 K/cumm RENAN WHYTE Comment:Testing performed by : [address] [address] MPV 11.1 9.1 - 12.3 fL RENAN WHYTE Comment:Testing performed by : [address] [address] RBC 4.79 3.90 - 5.20 M/cumm RENAN WHYTE Comment:Testing performed by : [address] [address] MCV 90.0 81.3 - 96.4 fL RENAN WHYTE Comment:Testing performed by : [address] [address] MCH 28.8 27.1 - 33.3 pg RENAN WHYTE Comment:Testing performed by : [address] [address] MCHC 32.0(L) 32.3 - 35.7 g/dL RENAN WHYTE Comment:Testing performed by : [address], [address] RDW CV 12.9 11.1 - 14.9 % RENAN Comment:Testing performed by : [address], [address] RDW SD 42.5 35.7 - 48.1 fL RENAN Comment:Testing performed by : [address], [address] NRBC abs 0.00 0.00 - 0.01 K/cumm RENAN Comment:Testing performed by : [address], [address] Blood 04/10/2025 10:5 6 AM MASTER CONTROL ENGINEER 04/10/2025 12:51 PM MASTER CONTROL ENGINEER us Evelina Marcelo MD LAB BLOOD ORDERAB LES Final Result RENAN WHYTE [address] [facility] Department of Laboratories [place], [place] [id number] * Hepatitis C antibody Blood (04/10/2025 10:56 AM MASTER CONTROL ENGINEER) Pathologist [facility] Hep C Ab Nonreactive Nonreactive Comment: Antibodies [...] on 2019. Blood 04/10/2025 10:5 6 AM MASTER CONTROL ENGINEER 04/10/2025 2:35 PM MASTER CONTROL ENGINEER us Evelina Marcelo MD LAB MICROBIOLOGY - GENERAL ORDERABLES Final Result Performing Organization Address [facility] Co de Phone Number [address] [employer] [place] [address] * Hepatitis B core antibody, total Blood (04/10/2025 10:56 AM MASTER CONTROL ENGINEER) Pathologist [facility] Hep B core IgG/IgM Nonreactive Nonreactive Comment:Testing performed by : [facility], [address] [place]., [address] Blood 04/10/2025 10:5 6 AM MASTER CONTROL ENGINEER 04/10/2025 3:43 PM MASTER CONTROL ENGINEER Evelina Marcelo MD LAB MICROBIOLOGY - GENERAL ORDERABLES Final Result Performing Organization Address [facility] Co de Phone Number [address] [place] [place] [address] * Hepatitis B surface antibody (immune status) Blood (04/10/2025 10:56 AM MASTER CONTROL ENGINEER) HBsAb (immune status) Reactive Comment: Interpretive Data [...] (immune status) index 69.0 mIUnits/m L RENAN Blood 04/10/2025 10:5 6 AM MASTER CONTROL ENGINEER 04/10/2025 2:35 PM MASTER CONTROL ENGINEER Evelina Marcelo MD LAB MICROBIOLOGY - GENERAL ORDERABLES Final Result Performing Organization Address [facility] Co de Phone Number [address] [place] [address] * Hepatitis B Surface Antigen Blood (04/10/2025 10:56 AM MASTER CONTROL ENGINEER) Pathologist [facility] HepBsAg Nonreactive Nonreactive Blood 04/10/2025 10:5 6 AM MASTER CONTROL ENGINEER 04/10/2025 2:35 PM MASTER CONTROL ENGINEER Evelina Marcelo MD LAB MICROBIOLOGY - GENERAL ORDERABLES Final Result Performing Organization Address [facility] de Phone Number [address] [address] * (ABNORMAL) Varicella Zoster IgG antibody Blood (04/10/2025 10:56 AM MASTER CONTROL ENGINEER) Pathologist [facility] VZV IgG Nonreacti ve(A) Reactive Comment: Non-reactive: No detectable antibody to Varicella-zoster virus. Such individuals are presumed to be uninfected and to be susceptible to primary infection. Testing performed by: [facility], [address], [place]., [address] Blood 04/10/2025 10:5 6 AM MASTER CONTROL ENGINEER 04/10/2025 3:43 PM MASTER CONTROL ENGINEER Evelina Marcelo MD LAB MICROBIOLOGY - GENERAL ORDERABLES Final Result Performing Organization Address [facility] Co de Phone Number [address] [place] [address] * Hemoglobin A1c (04/10/2025 10:56 AM MASTER CONTROL ENGINEER) Hgb A1C 5.1 4.0 - 5.6 % Comment:Testing performed by : [address] [address] Estimated Average Glucose 100 mg/dL RENAN Comment: The ADA recommends reporting an estimated Average Glucose (eAG) with all Hemoglobin A1c results using the equation derived from a study of 507 normal and diabetic adults. Minority populations were underrepresented and children were not included. (Diabetes Care 31:4732-5669, 2008). The eAG is not equivalent to a fasting glucose. Testing performed by: [address] [address] Blood 04/10/2025 10:5 6 AM MASTER CONTROL ENGINEER 04/10/2025 12:52 PM MASTER CONTROL ENGINEER Evelina Marcelo MD LAB BLOOD ORDERAB LES Final Result RENAN [address] [facility] [place] [address] * (ABNORMAL) Lipid panel (04/10/2025 10:56 AM MASTER CONTROL ENGINEER) Pathologist [facility] Cholesterol 221(H) 30 - 199 mg/dL Comment: [...] last revised on 2018. Testing performed by: [address] [address] Triglycerides 52 <=149 mg/dL RENAN WHYTE Comment: [...] last revised on 2018. Testing performed by: [address] [address] HDL 62 >=40 mg/dL RENAN Comment: Interpretive [...] last revised on 2018. Testing performed by: [address] [address] LDL, calculated 150(H) <=129 mg/dL RENAN Comment: [...] last revised on 2024. Testing performed by: [address] [address] Non-HDL Cholesterol 159 mg/dL RENAN WHYTE Comment: Interpretive Data Ages [...] last revised on 2018. Testing performed by: [address] [address] Chol/HDL ratio 4 RENAN WHYTE Comment:Testing performed by : [address] [address] Blood 04/10/2025 10:5 6 AM MASTER CONTROL ENGINEER 04/10/2025 12:49 PM MASTER CONTROL ENGINEER Evelina Marcelo MD LAB BLOOD ORDERAB LES Final Result RENAN [address] [facility] of Laboratories [place], [place] [id number] * Comprehensive metabolic panel (04/10/2025 10:56 AM MASTER CONTROL ENGINEER) Sodium 140 135 - 145 mmol/L Comment:Testing performed by : [address] [address] Potassium, pl 4.2 3.3 - 4.9 mmol/L RENAN WHYTE Comment:Testing performed by : [address] [address] Chloride 103 97 - 110 mmol/L RENAN WHYTE Comment:Testing performed by : [address] [address] CO2 26 22 - 32 mmol/L RENAN WHYTE Comment:Testing performed by : [address] [address] Anion gap 11 2 - 15 mmol/L RENAN Comment:Testing performed by : [address] [address] BUN 16 6 - 25 mg/dL RENAN Comment:Testing performed by : [address] [address] Creatinine 0.80 0.60 - 1.10 mg/dL RENAN Comment:Testing performed by : [address] [address] Glucose 82 70 - 199 mg/dL RENAN [...] classification and Diagnosis of Diabetes Diabetes Care 202; 46: S19-S40. Current interpretive data was last revised 2022. Testing performed by: [address] [address] Calcium 9.3 8.5 - 10.3 mg/dL RENAN Comment:Testing performed by : [address] [address] Bilirubin, total 0.4 0.1 - 1.2 mg/dL RENAN Comment:Testing performed by : [address] [address] Protein, pl 7.2 6.5 - 8.5 g/dL RENAN Comment:Testing performed by : [address] [address] Albumin 4.5 3.5 - 5.0 g/dL RENAN Comment:Testing performed by : [address] [address] Alk phos 70 40 - 130 Units/L RENAN Comment:Testing performed by : [address] [address] ALT 12 7 - 45 Units/L RENAN WHYTE Comment:Testing performed by : [facility], [address] [place] [address]., [address] AST 14 10 - 45 Units/L RENAN WHYTE Comment:Testing performed by : [facility], [address] [place] [address]., [address] Blood 04/10/2025 10:5 6 AM MASTER CONTROL ENGINEER 04/10/2025 12:49 PM MASTER CONTROL ENGINEER us Evelina Marcelo MD LAB BLOOD ORDERAB LES Final Result RENAN [address] [facility] [place] [address] from Last 3 Months Insurance [facility] Care Teams Grain Oilseed Or Pasture Farm Manager Relationship Specialty Start Date End Date Evelina Marcelo MD PCP - General Family Medicine 08/15/21
--- OUTSIDE RECORDS SUMMARY | 2025-05-01 13:36 | XMS_ITS | Clinical Summary ---
Author Organization [facility] Address [address] [place] [address] Care Team Providers Care Industrial Waste Inspector Name Role Phone Mckinley Braun MD Primary Care Provider + Source Comments [facility],non-owned Affiliates and Associated Physician Practices is amultiple site organization consisting of ambulatory clinics and hospital sitesin [place], [place], [place] and [place]. This disclosure is being madepursuant to the Care Everywhere program and may not contain all information available regarding this patient. Last updated 18.[facility] Allergies Active Allergy Reactions Criticality Noted Date [...] on file Legal Sex Female 6:24 PM HOME CARE SPECIALIST Gender Identity Not on file Sexual Orientation [...] of 3 - 19+ 3-dose series) 2008 PAP SMEAR 2010 HPV VACCINE (1 - 3-dose SCDM series) 2016 Cervical Cancer Screening 2019 PAP with HPV 2019 DEPRESSION SCREENING 06/07/2024 COVID-19 VACCINE (1 - 2024-2 6 season) 2025 INFLUENZA VACCINE (#1) 2025 ZOSTER [...] age to complete this topic Insurance [facility] Member Subscriber Plan / Payer (Ef fective for All Dates) Name:Brenda Ch Relation to Subscriber:Self Name:Brenda Ch Payer ID:[id number] (NAIC) Group ID:Not on file Type:Medicaid Managed Care Address: ATTN CLAIMS DEPARTMENT [address] [id number] [facility] Advance Directives * Full Code (Latest Code Status on File) Date Activated Date Inactivated Comments 04/02/2019 3:28 PM 04/03/2019 1:17 PM Care Teams Industrial Waste Inspector Relationship Specialty Start Date End Date Mckinley Braun MD PCP - General 10/31/08
--- OUTSIDE RECORDS SUMMARY | 2025-05-01 13:36 | XMS_ITS | Clinical Summary ---
Author Organization [facility] Care Team Providers Care Hr Leader Name Role Phone Unavailable Primary Care Provider [...]
--- OUTSIDE RECORDS SUMMARY | 2025-05-01 13:36 | XMS_ITS | Clinical Summary ---
Author Organization [facility] Address [address] [place] [address] Care Team Providers Care Director Channel Name Role Phone None, Provider MD Primary [...] Comments Blood Pressure 109/67 05/10/2019 4:51 PM TAILOR FITTER Pulse 71 05/10/2019 4:51 PM TAILOR FITTER Temperature 36.4 C (97.5 F) 05/17/2020 1:11 PM TAILOR FITTER patient reported Respiratory Rate 16 05/10/2019 4:51 PM TAILOR FITTER Oxygen Saturation 100% 05/10/2019 4:5 1 PM TAILOR FITTER Inhaled Oxygen Concentration - - Weight 70.8 kg (156 lb) 05/17/2020 1:11 PM TAILOR FITTER patient reported Height 157.5 cm (5' 2) [...] complete this topic Insurance Care Teams Director Channel Relationship Specialty Start Date End Date None, Provider, PCP - General UNKNOWN PHYSICIAN SPECIALTY 04/28/23
== END 2025-05-01 12:48 | disposition home or self-care (01) ==
PROVIDERS: PCP Hospitalist
DX: J02.9 Acute pharyngitis, unspecified (principal); J45.990 Exercise induced bronchospasm
CPT/HCPCS: 87081; 87880; 99213; G0463